=== PATIENT | female | born 1955 ===

== ENCOUNTER 2020-07-24 07:56 | Day surgery (SDC) | payer OTHER, SELFPAY ==
--- NOTE | 2020-07-23 12:26 | HO.ANESPROP2 ---
Documented by User: Sulema Redd 07/23/20 12:31 HPI - Anesthesia Eval Consult details Narrative: 65yo F for colonoscopy: screening [facility] Past Medical History Medical History (Updated 07/23/20 @ 12:30 by Sulema Redd) Diabetes HLD (hyperlipidemia) HTN (hypertension) Surgical History Surgical History Hx of colonoscopy Social History Social History Smoking Status: Former smoker Second Hand Smoke Exposure: No Use of substances other than those prescribed or required for medical reasons: No Have you been hit, kicked, punched, or otherwise hurt by someone within the past year? If so, by whom?: No Advance Directives: No Advance Directives Information Provided: Yes Meds Allergies Allergy/AdvReac Type Severity Reaction Status Date / Time No Known Allergies Allergy Verified 07/23/20 12:32 Home Medications Medication Instructions Recorded Confirmed Type amlodipine 1 tab PO DAILY 07/24/20 07/24/20 History atorvastatin 1 tab PO DAILY 07/24/20 07/24/20 History bisacodyl 2 tab PO BID 07/24/20 07/24/20 History lisinopril 1 tab PO DAILY 07/24/20 07/24/20 History metformin 1 tab PO DAILY 07/24/20 07/24/20 History peg 3350-electrolytes [GaviLyte-G] ml PO DIRECTED 07/24/20 History valacyclovir 1 tab PO TID 07/24/20 07/24/20 History Exam Exam Date and Time: July 23, 2020 1226 Pertinent Lab Results Pertinent Lab Results: Laboratory Tests 06/06/20 09:20 Sodium 141 Potassium 4.2 Chloride 107 BUN 13 Creatinine 0.86 Assessment and Plan Assessment Anesthesia Assessment: Chart Reviewed Documented by User: Antony Potts 07/24/20 09:10 [facility] Past Medical History Medical History (Updated 07/23/20 @ 12:30 by Sulema Redd) Diabetes HLD (hyperlipidemia) HTN (hypertension) Surgical History Surgical History Hx of colonoscopy Social History Social History Smoking Status: Former smoker Second Hand Smoke Exposure: No Use of substances other than those prescribed or required for medical reasons: No Have you been hit, kicked, punched, or otherwise hurt by someone within the past year? If so, by whom?: No Advance Directives: No Advance Directives Information Provided: Yes Meds Allergies Allergy/AdvReac Type Severity Reaction Status Date / Time No Known Allergies Allergy Verified 07/23/20 12:32 Home Medications Medication Instructions Recorded Confirmed Type amlodipine 1 tab PO DAILY 07/24/20 07/24/20 History atorvastatin 1 tab PO DAILY 07/24/20 07/24/20 History bisacodyl 2 tab PO BID 07/24/20 07/24/20 History lisinopril 1 tab PO DAILY 07/24/20 07/24/20 History metformin 1 tab PO DAILY 07/24/20 07/24/20 History peg 3350-electrolytes [GaviLyte-G] ml PO DIRECTED 07/24/20 History valacyclovir 1 tab PO TID 07/24/20 07/24/20 History Exam Airway Mallampati Class: III TM Dist: >3cm Neck ROM: Full Heart: RRR Assessment and Plan Assessment Anesthesia Assessment: Anesthesia Plan Discussed Final Anesthetic Review NPO: Yes ASA Class: II Final Preanesthetic Review: Consent Obtained/Reviewed Anesthetic Plan Anesthetic Plan: MAC: Disposition: Standard PACU
--- NOTE | 2020-07-24 07:25 | MHC.SHP ---
Pre-Procedural Eval Section A The patient is an INPATIENT: No The History & Physical has been completed within 30 days and I have reviewed it.: No Section B Chief Complaint: HX Colon Polyps, Screening Details of Present Illness: Had a colonoscopy 5 yrs ago at [facility] - a few small polyps and advised repeat Colon in 5 yrs. Patient denies abd pain, change in bowel habits, black stools or rectal bleeding Has a normal BM daily. Relevant Family History (Specify if Yes): No Relevant Social History: None Present Medications: see Short Stay Collaborative assessment Medical History: Significant History (Diabetes HLD (hyperlipidemia) HTN (hypertension)) History of Previous Operations: Relevant previous surgery/procedure and date(s) (colonoscopy in 2013) Allergies: Allergies Allergy/AdvReac Type Severity Reaction Status Date / Time No Known Allergies Allergy Verified 07/23/20 12:32 Review of Systems Sugical H&P ROS: Negative: Constitution, Cardiovascular, Respiratory, Psychiatric and Gastrointestinal Exam Surgical H&P Exam: Normal: Heart, Normal: Lungs, Normal: Extremities and Normal: Abdomen Plan Diagnosis/Plan: Unchanged Patient has been examined and remains a candidate for the planned procedure
[2020-07-24 08:08] VITALS: BMI 30.9
[2020-07-24 08:16] VITALS: BP 136/75; PULSE 81; RESP 16; TEMP 37; O2SAT 99
--- NOTE | 2020-07-24 08:16 | P.BOP_ITS ---
Brief Operative Note Date of procedure: 07/24/20 Pre-op diagnosis: Colon cancer screening, hx of colon polyps Post-op diagnosis: other (Colon polyps, diverticulosis and hemorrhoids) Procedure: COLONOSCOPY TILL CECUM WITH SNARE POLYPECTOMY Consent: Indications for the procedure and potential complications of bleeding, perforation, reaction to medications and missed diagnosis were discussed with the patient and informed consent was obtained. Instrument: Olympus PCF H 190 L variable stiffness pediatric colonoscope Monitoring: Vital signs and clinical assessment, intermittent blood pressure monitoring, continuous EKG monitoring, Pulse oximetry and Carbon Dioxide monitoring were done throughout the procedure. Colon withdrawl time was 27 minutes. Procedure: The patient was placed in the left lateral decubitis position and pre-procedure medications were administered. After a digital rectal examination of the ano-rectum, the video colonoscope was inserted into the rectum and advanced through the colon to the cecum. The colonoscope was slowly withdrawn in a retrograde panoramic fashion and the colon mucosa was carefully examined including a retroflexed view of the rectum. Findings and interventions are described below. Procedure Difficulty: Without difficulty Findings: Terminal Ileum: Not evaluated Cecum: Normal Ascending Colon: Normal Transverse Colon: A 12-15 mm sessile polyp removed with a hot snare. Descending Colon: Moderate diverticulosis Sigmoid Colon: A 10 mm sessile polyp removed with a hot snare and a 4-5 mm diminutive polyp removed with the cold biopsy. A few additional 4-5 mm diminutive appearing polyps in rectosigmoid which were not removed. Moderate diverticulosis Rectum: A few additional 4-5 mm diminutive appearing polyps in rectosigmoid which were not removed. Ano-rectum: Moderate internal hemorrhoids Colon preparation: Good after copious irrigation Impression and Post Procedure Diagnosis: Colonoscopy Findings: Three polyps removed Moderate diverticulosis seen in the left colon Moderate hemorrhoids on retroflexed exam. Plan: Await pathology results Patient has an appointment on 08/16/20 in the GI Clinic with LINDSAY Cowart-. Repeat Colonoscopy interval based on path results - in 3 years if polyps are adenomatous and 5 years due to a hx of adenomatous colon polyps. Above findings were reviewed with the patient and colon polyps and diverticulosis handouts were given in the discharge area Surgeon: Swetha Hammer MD Anesthesia: MAC ( Dr Potts) Laboratory Apparatus Glass Blower: Tarny Riggins Estimated blood loss (mL): 0 Pathology: other (A. TC polyp x 1, B. SC polyps x 2) Condition: stable Disposition: PACU
[2020-07-24 08:19] LABS: Glucose, Whole Blood 94 mg/dL (60-115)
[2020-07-24] MEDS: Lactated Ringers 1,000 ML 100 ML IVCONT (08:25)
[2020-07-24 09:21] VITALS: BP 97/52; PULSE 69; RESP 18; TEMP 36.9; O2SAT 97
[2020-07-24 09:43] VITALS: BP 121/66; PULSE 67; RESP 17; TEMP 36.9; O2SAT 100
--- NOTE | 2020-07-24 10:10 | HO.POSTANES ---
Post Anesthesia Evaluation Post Anesthesia Evaluation Vital Signs: Vital Signs Temp Pulse Resp BP Pulse Ox 07/24/20 09:43 98.5 F 67 17 121/66 100 07/24/20 09:21 98.5 F 69 18 97/52 L 97 07/24/20 08:16 98.6 F 81 16 136/75 99 Anesthesia: Monitored Mental Status: Awake Pain Control: Satisfactory Nausea/Vomiting: None Hydration: Adequate Anesthesia-Related Issues: No Anes. Related Issues
== END 2020-07-24 10:40 | disposition home or self-care (01) ==
PROVIDERS: PCP Family Medicine; Visit Provider Internal Medicine Gastroenterology
PROC: 0DJD8ZZ Inspection of Lower Intestinal Tract, Via Natural or Artificial Opening Endoscopic (ICD-10-PCS; CPT 45378; principal; 2020-07-24 08:50)
DX: Z12.11 Encounter for screening for malignant neoplasm of colon (principal); Z86.010 Personal history of colon polyps; D12.3 Benign neoplasm of transverse colon; K63.5 Polyp of colon; K57.30 Diverticulosis of large intestine without perforation or abscess without bleeding; K64.8 Other hemorrhoids; E11.9 Type 2 diabetes mellitus without complications; E78.5 Hyperlipidemia, unspecified; I10 Essential (primary) hypertension; Z79.84 Long term (current) use of oral hypoglycemic drugs; Z79.899 Other long term (current) drug therapy; Z87.891 Personal history of nicotine dependence
CPT/HCPCS: 45385; 45380; 82947; 88305

== ENCOUNTER 2020-10-29 14:16 | Outpatient (REF) | payer OTHER, SELFPAY ==
[2020-10-29 14:56] LABS: Creatinine Urine 74.27 mg/dL; Microalbum/Creatinine Ratio Ur 22.8 ug/mg cr
== END 2020-10-29 14:17 | disposition home or self-care (01) ==
LOC: HO.LNP 14:16
PROVIDERS: Visit Provider Family Medicine
DX: Z00.00 Encounter for general adult medical examination without abnormal findings (principal); I10 Essential (primary) hypertension; R74.01 Elevation of levels of liver transaminase levels; E78.5 Hyperlipidemia, unspecified
CPT/HCPCS: 82043

== ENCOUNTER 2021-03-21 10:20 | Outpatient (REF) | payer MEDICARE, SELFPAY ==
[2021-03-21 15:07] LABS: Alanine Aminotransferase 37 U/L (0-31); Albumin Level 4.4 g/dL (3.5-5.0); Alkaline Phosphatase 51 U/L (39-117); Anion Gap 14 (12-20); Aspartate Amino Transferase 24 U/L (5-31); Bilirubin Total 0.5 mg/dL (0.0-1.0); Blood Urea Nitrogen 19 mg/dL (9-16); Calcium 9.4 mg/dL (8.4-10.2); Carbon Dioxide 27 mmol/L (22-29); Chloride 107 mmol/L (96-108); Estimated Glomerular Filt Rate 60; Glucose Fasting 109 mg/dL (60-99); Potassium 4.8 mmol/L (3.3-5.1); Sodium 143 mmol/L (135-145); Total Protein 6.9 g/dL (6.5-8.0)
[2021-03-21 15:27] LABS: TSH reflex Free T4 0.97 uIU/mL (0.32-4.0)
== END 2021-03-21 10:21 | disposition home or self-care (01) ==
LOC: HO.WFDLDS 10:20
PROVIDERS: Visit Provider Family Medicine
DX: Z00.00 Encounter for general adult medical examination without abnormal findings (principal); E11.9 Type 2 diabetes mellitus without complications; I10 Essential (primary) hypertension
CPT/HCPCS: 36415; 80053; 84443

== ENCOUNTER 2021-07-09 08:00 | Outpatient (RCR) | payer MEDICARE, SELFPAY | END 2021-10-21 09:54 | disposition home or self-care (01) | LOC: HO.PTWFD 08:00 | PROVIDERS: PCP Family Medicine; Visit Provider Family Medicine | DX: M25.511 Pain in right shoulder (principal) | CPT/HCPCS: 97110; 97140; 97150; 97161; 97530; 97535 ==

== ENCOUNTER 2021-09-13 10:16 | Outpatient (REF) | payer MEDICARE, SELFPAY ==
[2021-09-13 14:36] LABS: Creatinine Urine 264.74 mg/dL; Microalbum/Creatinine Ratio Ur 47.2 ug/mg cr
[2021-09-13 14:39] LABS: Alanine Aminotransferase 46 U/L (0-31); Albumin Level 4.2 g/dL (3.5-5.0); Alkaline Phosphatase 48 U/L (39-117); Anion Gap 12 (12-20); Aspartate Amino Transferase 34 U/L (5-31); Bilirubin Total 0.2 mg/dL (0.0-1.0); Blood Urea Nitrogen 18 mg/dL (9-16); Calcium 9.1 mg/dL (8.4-10.2); Carbon Dioxide 26 mmol/L (22-29); Chloride 106 mmol/L (96-108); Cholesterol 144 mg/dL; Estimated Glomerular Filt Rate 50; Glucose Fasting 112 mg/dL (60-99); HDL Cholesterol 34 mg/dL; LDL Cholesterol Calculated 73 mg/dl; Potassium 4.2 mmol/L (3.3-5.1); Sodium 140 mmol/L (135-145); Total Protein 6.7 g/dL (6.5-8.0); Triglycerides 189 mg/dL
[2021-09-17 13:21] LABS: Vitamin D 25-OH, D2 <4 ng/mL; Vitamin D 25-OH, D3 31 ng/mL; Vitamin D 25-OH, Total 31 ng/mL (30-100)
== END 2021-09-13 10:17 | disposition home or self-care (01) ==
LOC: HO.WFDLDS 10:16
PROVIDERS: Absent Provider Hospitalist; Visit Provider Family Medicine
DX: Z00.00 Encounter for general adult medical examination without abnormal findings (principal); R74.01 Elevation of levels of liver transaminase levels; E11.9 Type 2 diabetes mellitus without complications; E78.5 Hyperlipidemia, unspecified; I10 Essential (primary) hypertension; E55.9 Vitamin D deficiency, unspecified
CPT/HCPCS: 36415; 80053; 80061; 82043; 82306

== ENCOUNTER 2021-09-18 10:57 | Emergency (ER) | payer MEDICARE, SELFPAY ==
--- NOTE | ~2021-09-18 | XR_ITS ---
EXAMINATION: XR CHEST CLINICAL INFORMATION: Cough and Covid positive COMPARISON: None TECHNIQUE: Frontal view of the chest was obtained. FINDINGS: The lungs are well-expanded and clear of acute process. The heart size and pulmonary vascularity is normal. No gross bony abnormality. There is mild spondylosis of dorsal spine. XR/XR chest 1V IMPRESSION: Unremarkable chest exam.
--- NOTE | ~2021-09-18 | CT_ITS ---
EXAMINATION: CT ANGIOGRAM OF THE CHEST WITH AND WITHOUT CONTRAST (CT PULMONARY ANGIOGRAM FOR PE) CLINICAL INFORMATION: Reason for Exam hypoxia, tachycardia, SOB COMPARISON: None TECHNIQUE: Prior to contrast administration, noncontrast localization images were obtained. Subsequently, multidetector volumetric imaging was performed from the thoracic inlet to below the diaphragms following the administration of 71 mL Omnipaque 350 intravenous contrast. No contrast reaction reported Sagittal, coronal, and MIP oblique sagittal reformatted images were obtained on the CT workstation, uploaded to PACS, and reviewed. This CT examination was performed using dose optimization techniques as appropriate, variously including the following: *Automated exposure control *Adjustment of mA and/or kV according to patient size (this includes techniques or standardized protocols for targeted exams where dose is matched to indication/reason for exam; i.e. extremities or head) *Use of iterative reconstruction technique Total exam dose-length product 272 mGy-cm FINDINGS: QUALITY OF STUDY/CONTRAST BOLUS: Satisfactory. PULMONARY ARTERIES: No central or segmental pulmonary emboli. THORACIC AORTA: No aneurysm or dissection. LUNG: Central airways are patent. There is bronchial wall thickening present. No bronchiectasis. There is bilateral hilar lymphadenopathy present. There are diffuse bilateral regions of groundglass density some along the bronchovascular bundles but also in a peripheral pattern throughout the lungs consistent with a viral/atypical pneumonitis such as Covid. PLEURA: No pleural effusion or pneumothorax. MEDIASTINUM: Normal heart size. No pericardial effusion. There is contrast streak artifact present making evaluation of mediastinal lymphadenopathy heart. There is bilateral hilar lymphadenopathy. No evidence of septal bowing or right heart strain. CHEST WALL/AXILLA: No axillary or internal mammary lymphadenopathy. OSSEOUS STRUCTURES: No acute or suspicious osseous abnormality. UPPER ABDOMEN: Small hiatal hernia present. Cholelithiasis is seen without evidence of acute cholecystitis. No reflux of contrast into the hepatic veins to suggest elevated right heart pressures. CT/CT angio chest PE protocol IMPRESSION: No evidence of acute pulmonary artery embolus or thoracic aortic aneurysm or dissection. Diffuse groundglass opacity bilaterally consistent with Covid. Bilateral hilar lymphadenopathy. Cholelithiasis without evidence of acute cholecystitis. VTE: negative
[2021-09-18 11:24] VITALS: BP 115/77; PULSE 92; RESP 18; TEMP 36.9; O2SAT 94; BMI 30.4
[2021-09-18 12:00] LABS: MANUAL DIFF FLAG NO
[2021-09-18 12:01] LABS: Hematocrit 36.3 % (37.0-47.0); Hemoglobin 12.1 g/dl (12.0-16.0); Imm Gran Abs Auto 0.02 X10*3/uL (0.00-0.03); Imm Gran Pct Auto 0.3 % (0.0-0.4); Lymphocytes Absolute Auto 0.9 X10*3/uL (1.2-4.9); Lymphocytes Percent Auto 14.4 % (20-40); Mean Corpuscular HGB Conc 33.3 g/dl (31.0-35.0); Mean Corpuscular Hemoglobin 28.2 pg (27.0-33.0); Mean Corpuscular Volume 84.6 fL (80.0-98.0); Mean Platelet Volume 11.3 fL (9.4-12.3); Monocytes Absolute Auto 0.5 X10*3/uL (0.1-1.2); Monocytes Percent Auto 8.5 % (2-11); Neutrophils Absolute Auto 4.9 x10*3/uL (2.0-8.3); Neutrophils Percent Auto 76.8 % (45-73); Platelet Count 150 X10*3/uL (160-400); Red Blood Count 4.29 X10*6/uL (4.20-5.50); Red Cell Distribution Width 14.7 % (11.0-16.0); White Blood Count 6.4 X10*3/uL (4.8-10.8)
[2021-09-18 12:28] LABS: Anion Gap 13 (12-20); Blood Urea Nitrogen 18 mg/dL (9-16); Calcium 8.6 mg/dL (8.4-10.2); Carbon Dioxide 25 mmol/L (22-29); Chloride 102 mmol/L (96-108); Creatinine Clr Calc Pharmacy 56.9; Estimated Glomerular Filt Rate 55; Glucose Random 130 mg/dL (60-115); Potassium 4.1 mmol/L (3.3-5.1); Sodium 136 mmol/L (135-145)
--- NOTE | 2021-09-18 13:55 | ED_ITS ---
HPI - URI/Sore Throat General Chief Complaint: Upper Respiratory Symptoms Stated Complaint: dehydration covid + Time Seen by Provider: 09/18/21 13:55 Source: patient Mode of arrival: ambulatory Limitations: no limitations History of Present Illness HPI Narrative: 66-year-old female past medical history significant for hyperlipidemia, hypertension, diabetes, elevated transaminases, vitamin-D deficiency presenting to the emergency department with concerns of malaise, fatigue, body aches, left ear pain and productive cough of clear sputum x1 week. Patient tells me that today she tested positive for COVID-19. She tells me that she feels dehydrated has not been eating and drinking well. She tells me that she has been eating eggs, and drinking lots of water but she still feels dehydrated. She denies chest pain, shortness of breath fevers, chills, nausea, vomiting, abdominal pain, vision changes, headache. Patient is not vaccinated MD elicited complaint: other (Fatigue, COVID +,Headache ) Onset (ago): week(s) (1) Consistency: constant Severity: severe Description of mucous: clear Able to tolerate fluids by mouth: Yes Exacerbating factors: nothing Relieving factors: nothing Context: sick contacts ( same sx ) Associated symptoms: headache and other (dehydrated, body aches ) Treatments prior to arrival: none Related Data Home Medications Medication Instructions Recorded Confirmed magnesium 200 mg tablet 400 mg PO DAILY tab 05/13/21 05/13/21 Previous Rx's Medication Instructions Recorded amlodipine 10 mg tablet 10 mg PO DAILY 90 Days #90 tab 04/19/21 lisinopril 40 mg tablet 40 mg PO DAILY 90 Days #90 tab 04/19/21 metformin 500 mg tablet 500 mg PO DAILY 90 Days #90 tab 04/19/21 atorvastatin 40 mg tablet 40 mg PO DAILY #90 tab 04/22/21 azithromycin 250 mg tablet See Rx Instructions .ROUTE 09/18/21 .COMPLEX #6 tab Allergies Allergy/AdvReac Type Severity Reaction Status Date / Time No Known Allergies Allergy Verified 05/13/21 15:39 Review of Systems Review of Systems: Constitutional : No Weight loss, No Fever, No Chills, + Fatigue, + Malaise ENT/Mouth : No sore throat, No Rhinorrhea, + ear ache Eyes: No Eye Pain, No Swelling, No Redness Cardiovascular : No Chest Pain, No SOB, No Dyspnea on Exertion, No Orthopnea, No Edema, No Palpitations Respiratory : + Cough, + Sputum, No Wheezing Gastrointestinal : No Nausea, No Vomiting, No Diarrhea, No Constipation, No abdominal Pain, No Hematochezia, No Melena Genitourinary : No Dysuria, No Urinary Frequency, No Hematuria, Musculoskeletal : No joint pain, No Myalgias, No Joint Swelling Skin : No Skin Lesions, No rash Neuro : No Weakness, No Numbness, No Dizziness, + Headache Psych : No Anxiety/Panic, No Depression All other systems reviewed and are negative Yes all other systems are reviewed and are negative [facility] Past Medical History Attestation statement: The following information was validated with the patient. Source: old records reviewed and nursing notes reviewed Medical History Colon polyps Diabetes Diverticulosis HLD (hyperlipidemia) HTN (hypertension) Surgical History Hx of colonoscopy Family History Family History Father HTN (hypertension) CVD (cardiovascular disease) Mother No problems noted. Sister No problems noted. Sister No problems noted. Son No problems noted. Son No problems noted. Son No problems noted. Son No problems noted. Daughter No problems noted. Daughter No problems noted. 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 Oriented X3.? No acute distress.? Head: Normocephalic, atraumatic, no step-offs or deformities Eyes: Pupils equal, round and reactive to light.? ENT: Pharynx normal.? Neck: Normal inspection.? Neck supple.? CVS: Normal heart rate and rhythm.? Pulses normal.? Respiratory: No respiratory distress.? + crackles to bilateral lower lobes Abdomen: Soft and nontender.? Skin: Skin warm and dry.? Normal skin color.? Normal skin turgor.? Extremities: No lower extremity edema.? No calf ttp. 5/5 strength to bilateral upper and lower extremities Back: No midline tenderness, no C-spine tenderness, full range of motion, no CVA tenderness bilaterally Neuro: Oriented X 3.? No motor deficit.? No sensory deficit. Course Reevaluation(s) Reevaluation #1: And after ambulation patient is saturating 95% on room air. Patient not complaining of shortness of breath. No leukocytosis or anemia noted, leukopenia is noted no previous labs to compare with. BUN is noted to be slightly elevated, likely secondary to dehydration. There is no need to do a COVID swab since patient just got COVID tested today and she was positive. Patient's symptoms likely secondary to COVID-19. Chest x-ray pending Time: 14:01 Reevaluation #2: Chest x-ray still pending. Patient is hypoxic saturating 91% on room air, patient does not use home O2, she is not a smoker. Since patient at 1 point was tachycardic, and now is hypoxic I will do a CTA of the chest to rule out pulmonary embolism. Time: 15:27 Reevaluation #3: No VTE. Ground-glass opacities consistent with COVID. Bilateral hilar lymphadenopathy. There is no evidence of acute pulmonary artery embolus or thoracic aortic aneurysm or dissection. There is cholelithiasis without evidence of acute cholecystitis Time: 17:05 Additional Reevaluation(s): 1710 Ambulatory O2 - 94%-92% At this time patient is safe for discharge home with PCP follow-up. I have advised her to return to the emergency department with new or worsening symptoms. I will discharge patient home on azithromycin, to cover for atypical viral pneumonia. Discussed this case with , and he agrees with my plan patient OK for DC home, he suggest giving patient albuterol inhaler. Which I added. Comfortable with DC home. MDM - URI/Sore Throat MDM Narrative Medical decision making narrative: 1359 66 yo F pmhx htn, dm, hld, and elevated transaminases presents to ED with body aches, fatigue, malise, feel dehydrated and productive cough X 1 week. To note, patient tested + for COVID-19 today. She is not vaccinated Physical examination significant for bilateral cracklesto lower lung davila. Vital signs stable. regular rate and rhythm. Abdomen soft nontender nondistended. Bilateral tympanic membranes pearly white, nor erythema or edema no bulging. No lymphadenopathy Plan at this time is to obtain basic labs. chest x-ray Medical Records Attestation: I reviewed the patient's medical records. Lab Data Attestation: I reviewed the patient's lab results. Result diagrams: 09/18/21 11:54 12 11:54 Labs: Lab Results 09/18/21 09/18/21 Range/Units 11:54 11:54 WBC 6.4 (4.8-10.8) X10*3/uL RBC 4.29 (4.20-5.50) X10*6/uL Hgb 12.1 (12.0-16.0) g/dl Hct 36.3 L (37.0-47.0) % MCV 84.6 (80.0-98.0) fL MCH 28.2 (27.0-33.0) pg MCHC 33.3 (31.0-35.0) g/dl RDW 14.7 (11.0-16.0) % Plt Count 150 L (160-400) X10*3/uL MPV 11.3 (9.4-12.3) fL Immature Gran % (Auto) 0.3 (0.0-0.4) % Neut % (Auto) 76.8 H (45-73) % Lymph % (Auto) 14.4 L (20-40) % Hunt % (Auto) 8.5 (2-11) % Eos % (Auto) 0.0 (0-4) % Baso % (Auto) 0.0 (0-2) % Lymph # (Auto) 0.9 L (1.2-4.9) X10*3/uL Hunt # (Auto) 0.5 (0.1-1.2) X10*3/uL Eos # (Auto) 0.0 (0.0-0.4) X10*3/uL Baso # (Auto) 0.0 (0.0-0.2) X10*3/uL Abs Immat Gran (auto) 0.02 (0.00-0.03) X10*3/uL Absolute Neuts (auto) 4.9 (2.0-8.3) x10*3/uL Absolute Nucleated RBC 0.000 (0.0-0.012) X10*3/uL Nucleated RBC % (auto) 0.0 (0.0-0.2) /100WBC Sodium 136 (135-145) mmol/L Potassium 4.1 (3.3-5.1) mmol/L Chloride 102 (96-108) mmol/L Carbon Dioxide 25 (22-29) mmol/L Anion Gap 13 (12-20) BUN 18 H (9-16) mg/dL Creatinine 1.01 (0.5-1.4) mg/dL Estim Creat Clear Calc 56.9 Estimated GFR 55 Random Glucose 130 H (60-115) mg/dL Calcium 8.6 (8.4-10.2) mg/dL Imaging Data Chest x-ray: Attestation: I personally reviewed and interpreted this imaging study as follows: Radiologist's impression: FINDINGS: The lungs are well-expanded and clear of acute process. The heart size and pulmonary vascularity is normal. No gross bony abnormality. There is mild spondylosis of dorsal spine. XR/XR chest 1V IMPRESSION: Unremarkable chest exam. CTA: Attestation: I personally reviewed and interpreted this imaging study as follows: Radiologist's impression: CT/CT angio chest PE protocol IMPRESSION: No evidence of acute pulmonary artery embolus or thoracic aortic aneurysm or dissection. ? Diffuse groundglass opacity bilaterally consistent with Covid. ? Bilateral hilar lymphadenopathy. ? Cholelithiasis without evidence of acute cholecystitis. ? VTE: negative Critical Care Time Critical Care Time Critical Care Time: No Discharge Plan Discharge Clinical Impression: Malaise, Fatigue, COVID-19, Pneumonia due to 2019-nCoV Patient Disposition: Home, Self-Care Instructions: Fatigue (ED), COVID-19 (Coronavirus Disease 2019) (ED) Additional Instructions: Take your medications as prescribed. If you were prescribed antibiotics today, it is important that you take your medication to their entirety, do not skip any doses, do not finish them early. No blood clot in the lungs Today you tested positive for COVID-19. Take Ibuprofen or Tylenol as needed for fevers or body aches. Quarantine for 14 days if you are not vaccinated or for 10 days if you are vaccinated. Drink plenty of fluids. Ibuprofen every 6 hours tylenol every four if able to take these meds for pain/fever. Use inhaler as prescribed. Follow-up with your primary care provider this week. Return to the emergency department with new or worsening symptoms. In case of emergency call 911 Prescriptions: New azithromycin 250 mg tablet See Rx Instructions .ROUTE .COMPLEX Qty: 6 RF: 0 No Action lisinopril 40 mg tablet 40 mg PO DAILY 90 Days Qty: 90 RF: 3 amlodipine 10 mg tablet 10 mg PO DAILY 90 Days Qty: 90 RF: 3 metformin 500 mg tablet 500 mg PO DAILY 90 Days Qty: 90 RF: 3 atorvastatin 40 mg tablet 40 mg PO DAILY Qty: 90 RF: 3 magnesium 200 mg tablet 400 mg PO DAILY RF: 0 Referrals: Kanu Hinkle MD [Primary Care Provider] - 2 days Stand Alone Forms: Work/School Release
[2021-09-18] MEDS: Acetaminophen 325 MG TABLET 650 MG PO (14:14)
[2021-09-18 15:20] VITALS: BP 106/58; PULSE 77; RESP 20; TEMP 36.9; O2SAT 91
[2021-09-18] MEDS: iohexoL 350 MG/ML 100 ML INFUS..BTL IV (16:23)
[2021-09-18] MEDS: Albuterol Sulfate 90 MCG 8 GM INHALER 4 PUFF INHALE (17:26)
[2021-09-18 17:29] VITALS: PULSE 77; RESP 20; O2SAT 92
== END 2021-09-18 18:09 | disposition home or self-care (01) ==
PROVIDERS: Emergency Provider Emergency Medicine; PCP Family Medicine
DX: U07.1 COVID-19 (principal); J12.82 Pneumonia due to coronavirus disease 2019; R09.02 Hypoxemia
CPT/HCPCS: 36415; 71045; 71275; 80048; 85025; 94640; 99284; Q9967

== ENCOUNTER 2022-01-27 08:26 | Outpatient (REF) | payer MEDICARE, SELFPAY ==
[2022-01-27 12:37] LABS: Alanine Aminotransferase 25 U/L (0-31); Albumin Level 4.2 g/dL (3.5-5.0); Alkaline Phosphatase 52 U/L (39-117); Anion Gap 9 (12-20); Aspartate Amino Transferase 19 U/L (5-31); Bilirubin Total 0.4 mg/dL (0.0-1.0); Blood Urea Nitrogen 17 mg/dL (9-16); Calcium 9.1 mg/dL (8.4-10.2); Carbon Dioxide 28 mmol/L (22-29); Chloride 108 mmol/L (96-108); Cholesterol 184 mg/dL; Estimated Glomerular Filt Rate > 60; Glucose Fasting 127 mg/dL (60-99); HDL Cholesterol 48 mg/dL; LDL Cholesterol Calculated 103 mg/dl; Potassium 4.1 mmol/L (3.3-5.1); Sodium 141 mmol/L (135-145); Total Protein 6.5 g/dL (6.5-8.0); Triglycerides 165 mg/dL
[2022-01-27 12:55] LABS: Vitamin D 25-OH Total 34.7 ng/mL (>30)
== END 2022-01-27 08:27 | disposition home or self-care (01) ==
LOC: HO.WFDLDS 08:26
PROVIDERS: Visit Provider Family Medicine
DX: Z00.00 Encounter for general adult medical examination without abnormal findings (principal); E55.9 Vitamin D deficiency, unspecified; E11.9 Type 2 diabetes mellitus without complications
CPT/HCPCS: 36415; 80053; 80061; 82306

== ENCOUNTER 2022-06-03 10:06 | Outpatient (REF) | payer MEDICARE, SELFPAY ==
[2022-06-03 14:51] LABS: Alanine Aminotransferase 16 U/L (0-31); Albumin Level 4.1 g/dL (3.5-5.0); Alkaline Phosphatase 49 U/L (39-117); Anion Gap 14 (12-20); Aspartate Amino Transferase 16 U/L (5-31); Bilirubin Total 0.4 mg/dL (0.0-1.0); Blood Urea Nitrogen 18 mg/dL (9-16); Calcium 9.4 mg/dL (8.4-10.2); Carbon Dioxide 25 mmol/L (22-29); Chloride 107 mmol/L (96-108); Cholesterol 160 mg/dL; Estimated Glomerular Filt Rate 57; Glucose Fasting 105 mg/dL (60-99); HDL Cholesterol 45 mg/dL; LDL Cholesterol Calculated 90 mg/dl; Potassium 4.6 mmol/L (3.3-5.1); Sodium 141 mmol/L (135-145); Total Protein 6.8 g/dL (6.5-8.0); Triglycerides 127 mg/dL; Vitamin D 25-OH Total 41.3 ng/mL (>30)
[2022-06-03 15:00] LABS: Creatinine Urine 216.92 mg/dL
[2022-06-03 15:13] LABS: Microalbum/Creatinine Ratio Ur 788.7 ug/mg cr
== END 2022-06-03 10:07 | disposition home or self-care (01) ==
LOC: HO.WFDLDS 10:06
PROVIDERS: Visit Provider Family Medicine
DX: Z00.00 Encounter for general adult medical examination without abnormal findings (principal); I10 Essential (primary) hypertension; E78.5 Hyperlipidemia, unspecified; E55.9 Vitamin D deficiency, unspecified
CPT/HCPCS: 36415; 80053; 80061; 82043; 82306

== ENCOUNTER 2022-10-21 10:20 | Outpatient (REF) | payer MEDICARE, SELFPAY ==
[2022-10-21 14:01] LABS: MANUAL DIFF FLAG NO
[2022-10-21 14:12] LABS: Basophils Percent Auto 0.5 % (0-2); Eosinophils Absolute Auto 0.1 X10*3/uL (0.0-0.4); Eosinophils Percent Auto 1.3 % (0-4); Hematocrit 39.9 % (37.0-47.0); Hemoglobin 12.6 g/dl (12.0-16.0); Imm Gran Abs Auto 0.02 X10*3/uL (0.00-0.03); Imm Gran Pct Auto 0.3 % (0.0-0.4); Lymphocytes Absolute Auto 1.6 X10*3/uL (1.2-4.9); Lymphocytes Percent Auto 20.7 % (20-40); Mean Corpuscular HGB Conc 31.6 g/dl (31.0-35.0); Mean Corpuscular Volume 85.4 fL (80.0-98.0); Mean Platelet Volume 10.8 fL (9.4-12.3); Monocytes Absolute Auto 0.4 X10*3/uL (0.1-1.2); Monocytes Percent Auto 5.7 % (2-11); Neutrophils Absolute Auto 5.4 x10*3/uL (2.0-8.3); Neutrophils Percent Auto 71.5 % (45-73); Platelet Count 277 X10*3/uL (160-400); Red Blood Count 4.67 X10*6/uL (4.20-5.50); Red Cell Distribution Width 14.6 % (11.0-16.0); White Blood Count 7.6 X10*3/uL (4.8-10.8)
[2022-10-21 14:14] LABS: Appearance Urine Cloudy; Color Urine Yellow; Glucose Urine UA Negative (Negative); Leukocyte Esterase Urine Small (1+) (Negative); Nitrite Urine Negative (Negative); UMIC TRIGGER UA YES; Urine Blood Large (3+) (Negative); Urine Ketones Negative (Negative); Urine Protein 30 (1+) mg/dL (Neg-Trace)
[2022-10-21 14:34] LABS: Bacteria Urine None Seen (None Seen); Calcium Oxalate Crystals Urine Present; Hyaline Casts Urine 0-2 /LPF (0-2); RBC Urine >20 /HPF (0-2); Squamous Epithelial Cell Urine 0-2 /HPF (0-2)
[2022-10-21 14:50] LABS: Alanine Aminotransferase 21 U/L (0-31); Albumin Level 4.3 g/dL (3.5-5.0); Alkaline Phosphatase 65 U/L (39-117); Anion Gap 14 (12-20); Aspartate Amino Transferase 18 U/L (5-31); Bilirubin Total 0.4 mg/dL (0.0-1.0); Blood Urea Nitrogen 15 mg/dL (9-16); Calcium 9.5 mg/dL (8.4-10.2); Carbon Dioxide 26 mmol/L (22-29); Chloride 108 mmol/L (96-108); Cholesterol 179 mg/dL; Estimated Glomerular Filt Rate 59; Glucose Fasting 111 mg/dL (60-99); HDL Cholesterol 47 mg/dL; LDL Cholesterol Calculated 103 mg/dl; Potassium 4.6 mmol/L (3.3-5.1); Sodium 143 mmol/L (135-145); TSH reflex Free T4 0.85 uIU/mL (0.32-4.0); Total Protein 6.8 g/dL (6.5-8.0); Triglycerides 147 mg/dL
[2022-10-21 15:32] LABS: Creatinine Urine 180.88 mg/dL; Microalbum/Creatinine Ratio Ur 74.6 ug/mg cr
== END 2022-10-21 10:21 | disposition home or self-care (01) ==
LOC: HO.WFDLDS 10:20
PROVIDERS: Visit Provider Family Medicine
DX: Z00.00 Encounter for general adult medical examination without abnormal findings (principal); I10 Essential (primary) hypertension; Z13.220 Encounter for screening for lipoid disorders; Z13.29 Encounter for screening for other suspected endocrine disorder
CPT/HCPCS: 36415; 80053; 80061; 81001; 81003; 82043; 84443; 85025

== ENCOUNTER 2023-05-07 08:40 | Outpatient (AMB) | payer MEDICARE, SELFPAY ==
[2023-05-07 08:51] VITALS: BP 118/70; PULSE 75; O2SAT 98; BMI 29.0
--- NOTE | 2023-05-07 08:51 | A.OFFPC_ITS ---
Vital Signs 05/07/23 08:51 Height 5 ft 4 in Weight 169 lb BMI 29.0 BP 118/70 Blood Pressure Location Lt brachial Position Sitting Pulse 75 Pulse Source Pulse Oximeter Pulse Oximetry (%) 98 Oxygen Delivery Method Room Air Intake Visit Reasons: f/u hypertension and diabetes Intake Note: Patient is here for follow up on hypertension and diabetes. Allergies No Known Allergies Allergy (Verified 05/07/23 08:55) Medication List - Last Reconciled 05/07/23 by Kanu Hinkle MD amlodipine 10 mg PO DAILY 90 days atorvastatin 40 mg PO DAILY 90 days blood sugar diagnostic (OneTouch Verio test strips) As directed blood sugar diagnostic (FreeStyle Lite Strips) DX: E11.9, test blood sugar once a day, 90 days blood-glucose meter (WatchupTouch Verio Flex Meter) To test blood sugar daily As directed, 999 days chlorthalidone 25 mg PO DAILY lancets (WatchupTouch UltraSoft Lancets) Test blood sugars daily As directed, 90 days lisinopril 40 mg PO DAILY 90 days magnesium 400 mg PO DAILY metformin 500 mg PO DAILY 90 days Tobacco use date assessed: 05/07/23 Dental Screening Dental Screen Date: 05/07/23 Did you have a dental visit in the last 12 months?: Yes Did you have a dental problem in the last 6 months where you did not have access to dental care?: No Was dental information given to patient?: No HPI f/u hypertension and diabetes HPI Details 68 y/o female presents to f/u diabetes and hypertension. Last A1c in October was 6.2%. A1c today 05/07/23 is 6.1%. She is on metformin 500mg daily. She is followed by Urology for urinary stones for better calcium excretions. Blood pressure today is 118/70. She is on lisinopril 40mg, amlodipine 10mg, and chlorthalidone 25mg daily. [facility] Medical History Colon polyps Diabetes Diverticulosis HLD (hyperlipidemia) HTN (hypertension) Kidney stones Surgical History Hx of colonoscopy Family History Father HTN (hypertension) CVD (cardiovascular disease) Mother No problems noted. Sister No problems noted. Sister No problems noted. Son No problems noted. Son No problems noted. Son No problems noted. Son No problems noted. Daughter No problems noted. Daughter No problems noted. 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 Prieto Chan, Monie Farooq, Noe Bermudez and colleagues, with an educational quyen from [employer]. Review of Systems Const Denies chills, Denies fatigue, Denies fever(s), Denies headache(s) and Denies weakness ENT Denies dizziness and Denies headache(s) Card Denies chest pain, Denies lightheadedness, Denies dyspnea and Denies other (Palpitations) Resp Denies cough, Denies dyspnea, Denies wheezing and Denies other ( shortness of breath) Musc Denies numbness and Denies tingling Neuro Denies dizziness, Denies headache(s), Denies numbness, Denies tingling, Denies paresthesias and Denies weakness Psych Denies anxiety and Denies depression Endo Denies fatigue Aller/Immun Denies wheezing Physical exam (Primary Care) Vital Signs: Last Vital Signs Pulse 75 05/07/23 08:51 BP 118/70 05/07/23 08:51 Pulse Ox 98 05/07/23 08:51 Oxygen Delivery Method Room Air 05/07/23 08:51 BMI result Body Mass Index 29.0 Tobacco/Smoking Status: Tobacco use Status Tobacco use date assessed 05/07/23 05/07/23 09:07 Patient Tobacco Use Status Never used Tobacco 05/07/23 09:07 e-Cigarette/Vaping Use Never Used 05/07/23 09:07 Const General: no acute distress and well developed Nutritional Appearance: well nourished Orientation/consciousness: patient oriented x3 HENMT Head: Yes normocephalic and Yes atraumatic Eyes General: appearance normal, both eyes and all related structures Pupils: Equal, round and reactive pupils present EOM: EOMs intact bilaterally Resp Effort & Inspection: normal respiratory effort Auscultation: clear to auscultation bilaterally Cardio Rate: regular rate Rhythm: regular rhythm Heart sounds: S1 normal heart sound present, S2 normal heart sound present, no gallops, no murmurs and no rubs Neuro General: patient oriented x3 and gait normal Cranial nerves: Yes Equal, round and reactive pupils present Psych Affect: normal affect Results AMB Hemoglobin A1c AMB Hemoglobin A1c 6.1 % Last Edit by Shana Dawkins CMA on 05/07/23 09:12 Assessment and Plan Assessment & Plan (1) Essential hypertension: Code(s): I10 - Essential (primary) hypertension Plan: Blood pressure now well controlled and at goal of less than 140/90 since the addition of chlorthalidone by her urologist for better calcium excretion. Continue lisinopril, amlodipine and chlorthalidone (2) Diabetes type 2, controlled: Code(s): E11.9 - Type 2 diabetes mellitus without complications Plan: A1c today 6.1%, on metformin 500 mg daily Continue current medication regimen Recent eye exam in February showed no diabetic retinopathy (3) Urinary stone: Code(s): N20.9 - Urinary calculus, unspecified Plan: History of urinary stones with sepsis Recently saw urology and has a lower pole stone which appears to be nonobstructing and has undergone lithotripsy Now started on chlorthalidone to help with calcium excretion A well Follow-up with urology as recommended (4) Hyperlipidemia: Code(s): E78.5 - Hyperlipidemia, unspecified Plan: Cholesterol levels were well controlled at her last visit. LDL goal is less than 100 for patient with diabetes and she was at 01:03 in October but she has been working on weight loss and dietary changes. She notes that she has been having sore, aching muscles from atorvastatin 40 mg daily. Will trial 20 mg daily again. If next LDL cholesterol is too high, will try 20 mg/40 mg on alternating days Orders: Orders AMB Hemoglobin A1c Today Z13.9 - Encounter for screening, unspecified Comprehensive [place]. Panel Fast Today E78.5 - Hyperlipidemia, unspecified, Z00.00 - Encounter for general adult medical examination without abnormal findings Lipid Panel Today E78.5 - Hyperlipidemia, unspecified, Z00.00 - Encounter for general adult medical examination without abnormal findings Microalbumin, Random (w Creat) Today I10 - Essential (primary) hypertension Coding Level of Care Code Est Pt Level 4 (07772) Diagnoses Essential hypertension I10 Diabetes type 2, controlled E11.9 Urinary stone N20.9 Hyperlipidemia E78.5
== END 2023-05-07 09:23 | disposition home or self-care (01) ==
PROVIDERS: PCP Family Medicine; Visit Provider Family Medicine
DX: I10 Essential (primary) hypertension (principal); E11.9 Type 2 diabetes mellitus without complications; N20.9 Urinary calculus, unspecified; E78.5 Hyperlipidemia, unspecified; Z13.9 Encounter for screening, unspecified
CPT/HCPCS: 83036; 99214

== ENCOUNTER 2023-07-17 07:51 | Outpatient (REF) | payer MEDICARE, SELFPAY ==
[2023-07-17 11:49] LABS: Appearance Urine Clear; Color Urine Yellow; Glucose Urine UA Negative (Negative); Leukocyte Esterase Urine Trace (Negative); Nitrite Urine Negative (Negative); Specific Gravity - Urine 1.015 (1.005-1.025); UMIC TRIGGER UA YES; Urine Blood Negative (Negative); Urine Ketones Negative (Negative); Urine Protein Negative (Neg-Trace)
[2023-07-17 12:03] LABS: Bacteria Urine None Seen (None Seen); Hyaline Casts Urine 0-2 /LPF (0-2); Squamous Epithelial Cell Urine 0-2 /HPF (0-2); WBC Urine 0-5 /HPF (0-5)
[2023-07-17 12:49] LABS: Alanine Aminotransferase 28 U/L (0-31); Albumin Level 4.4 g/dL (3.5-5.0); Alkaline Phosphatase 42 U/L (39-117); Anion Gap 12 (12-20); Aspartate Amino Transferase 22 U/L (5-31); Bilirubin Total 0.4 mg/dL (0.0-1.0); Blood Urea Nitrogen 16 mg/dL (9-16); Calcium 9.8 mg/dL (8.4-10.2); Carbon Dioxide 27 mmol/L (22-29); Chloride 106 mmol/L (96-108); Cholesterol 169 mg/dL (<200); Estimated Glomerular Filt Rate 55; Glucose Fasting 128 mg/dL (60-99); HDL Cholesterol 49 mg/dL (>40); LDL Cholesterol Calculated 92 mg/dL (<100); Potassium 4.2 mmol/L (3.3-5.1); Sodium 141 mmol/L (135-145); Triglycerides 140 mg/dL (<150)
[2023-07-17 13:18] LABS: Creatinine Urine 115.41 mg/dL; Microalbumin Urine < 5.0 mg/L
== END 2023-07-17 07:52 | disposition home or self-care (01) ==
LOC: HO.WFDLDS 07:51
PROVIDERS: Visit Provider Family Medicine
DX: Z00.00 Encounter for general adult medical examination without abnormal findings (principal); E78.5 Hyperlipidemia, unspecified; I10 Essential (primary) hypertension
CPT/HCPCS: 36415; 80053; 80061; 81001; 82043; 82570

== ENCOUNTER 2023-08-06 08:45 | Outpatient (AMB) | payer MEDICARE, SELFPAY ==
--- NOTE | 2023-08-06 08:48 | MHC.PC.OV ---
Vital Signs 08/06/23 08:58 Height 5 ft 4 in Weight 174 lb 4 oz BMI 29.9 BP 118/68 Blood Pressure Location Lt brachial Position Sitting Respiration 14 Pulse 73 Pulse Source Pulse Oximeter Temp 98.9 F Temp Source Oral Pulse Oximetry (%) 97 Oxygen Delivery Method Room Air Intake Visit Reasons: f/u diabetes, hypertension, HLD Intake Note: Patient is here for a follow up appointment. Patient shares she has no concerns at this time. 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 Accompanied by: Self / Same As Patient Allergies No Known Allergies Allergy (Verified 08/06/23 09:00) Medication List - Last Reconciled 08/06/23 by Kanu Hinkle MD amlodipine 10 mg PO DAILY 90 days atorvastatin 40 mg PO DAILY 90 days blood sugar diagnostic ([employer] Verio test strips) As directed blood-glucose meter (Fur and Mask Verio Flex Meter) To test blood sugar daily As directed, 999 days chlorthalidone 25 mg PO DAILY lancets ([employer] UltraSoft Lancets) Test blood sugars daily As directed, 90 days lisinopril 40 mg PO DAILY 90 days magnesium 400 mg PO DAILY metformin 500 mg PO DAILY 90 days Tobacco use date assessed: 05/07/23 HPI f/u diabetes, hypertension, HLD HPI Details 68 y/o female presents to f/u diabetes, hypertension, HLD. Pt had noted worsened muscular cramping with artovastatin at 40mg daily so she had went back to 20mg daily. Pt notes she had been taking the full tablet every other day with the half tablet. A1c 08/06/23 6.6%. She is on metformin 500mg daily. Lipid panel drawn 07/17/23. Reviewed labs with pt. Triglycerides 140. TC 169. LDL 92. HDL 49. Blood pressure today is 118/68. He is on lisinopril 40mg daily and amlodipine 10mg daily. [facility] Medical History Kidney stones Colon polyps Diverticulosis HLD (hyperlipidemia) HTN (hypertension) Diabetes Surgical History Hx of colonoscopy Family History Father HTN (hypertension) CVD (cardiovascular disease) Mother No problems noted. Sister No problems noted. Sister No problems noted. Son No problems noted. Son No problems noted. Son No problems noted. Son No problems noted. Daughter No problems noted. Daughter No problems noted. 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 Prieto Chan, Monie Farooq, Noe Bermudez and colleagues, with an educational quyen from [employer]. Physical exam (Primary Care) Vital Signs: Last Vital Signs Temp 98.9 F 08/06/23 08:58 Pulse 73 08/06/23 08:58 Resp 14 08/06/23 08:58 BP 118/68 08/06/23 08:58 Pulse Ox 97 08/06/23 08:58 Oxygen Delivery Method Room Air 08/06/23 08:58 BMI result Body Mass Index 29.9 Tobacco/Smoking Status: Tobacco use Status Tobacco use date assessed 05/07/23 08/06/23 08:49 Patient Tobacco Use Status Never used Tobacco 08/06/23 08:49 e-Cigarette/Vaping Use Never Used 08/06/23 08:49 Results AMB Hemoglobin A1c AMB Hemoglobin A1c 6.6 % Last Edit by Elina Sow CMA on 08/06/23 09:15 Results Reviewed Results Reviewed: Laboratory Last Values Hgb A1c (Clinic) 6.6 % (4.0-6.0) H 08/06/23 09:13 Assessment and Plan Assessment & Plan (1) Diabetes type 2, controlled: Code(s): E11.9 - Type 2 diabetes mellitus without complications Plan: A1c?6.6%.??Controlled.??Goal?is?less?than?7.0% Continue?current?medication?regimen?and?diabetic?diet Eye?exam?in?May.??Up-to-date (2) Hyperlipidemia: Code(s): E78.5 - Hyperlipidemia, unspecified Plan: LDL?now?at?goal?of?less?than?100?for?patient?with?diabetes She?is?using?a?regimen?of?atorvastatin?40/30?mg?every?other?day Continue?current?regimen Continue?diet?low?in?saturated?fats?and?cholesterol (3) Essential hypertension: Code(s): I10 - Essential (primary) hypertension Plan: Blood?pressure?is?well?controlled.??Goal?is?less?than?140/90 Continue?current?medication Orders: Orders Comprehensive [place]. Panel Fast Today Z00.00 - Encounter for general adult medical examination without abnormal findings Lipid Panel Today Z00.00 - Encounter for general adult medical examination without abnormal findings Microalbumin, Random (w Creat) Today I10 - Essential (primary) hypertension UA and rflx microscopic Today Z00.00 - Encounter for general adult medical examination without abnormal findings Complete Blood Count Auto Diff Today Z00.00 - Encounter for general adult medical examination without abnormal findings TSH reflex Free T4 Today Z00.00 - Encounter for general adult medical examination without abnormal findings Coding Level of Care Code Est Pt Level 4 (29991) Diagnoses Diabetes type 2, controlled E11.9 Hyperlipidemia E78.5 Essential hypertension I10
[2023-08-06 08:58] VITALS: BP 118/68; PULSE 73; RESP 14; TEMP 37.2; O2SAT 97; BMI 29.9
== END 2023-08-06 09:31 | disposition home or self-care (01) ==
PROVIDERS: PCP Family Medicine; Visit Provider Family Medicine
DX: E11.9 Type 2 diabetes mellitus without complications (principal); E78.5 Hyperlipidemia, unspecified; I10 Essential (primary) hypertension
CPT/HCPCS: 83036; 99214

== ENCOUNTER 2023-11-06 08:14 | Outpatient (REF) | payer MEDICARE, SELFPAY ==
[2023-11-06 11:31] LABS: MANUAL DIFF FLAG NO
[2023-11-06 11:49] LABS: Basophils Absolute Auto 0.1 X10*3/uL (0.0-0.2); Basophils Percent Auto 0.9 % (0-2); Eosinophils Absolute Auto 0.3 X10*3/uL (0.0-0.4); Eosinophils Percent Auto 4.4 % (0-4); Hematocrit 39.7 % (37.0-47.0); Imm Gran Abs Auto 0.01 X10*3/uL (0.00-0.03); Imm Gran Pct Auto 0.2 % (0.0-0.4); Lymphocytes Absolute Auto 1.8 X10*3/uL (1.2-4.9); Lymphocytes Percent Auto 31.6 % (20-40); Mean Corpuscular HGB Conc 32.7 g/dl (31.0-35.0); Mean Corpuscular Hemoglobin 28.6 pg (27.0-33.0); Mean Corpuscular Volume 87.4 fL (80.0-98.0); Mean Platelet Volume 10.9 fL (9.4-12.3); Monocytes Absolute Auto 0.4 X10*3/uL (0.1-1.2); Neutrophils Absolute Auto 3.2 x10*3/uL (2.0-8.3); Neutrophils Percent Auto 55.9 % (45-73); Platelet Count 246 X10*3/uL (160-400); Red Blood Count 4.54 X10*6/uL (4.20-5.50); Red Cell Distribution Width 13.9 % (11.0-16.0); White Blood Count 5.7 X10*3/uL (4.8-10.8)
[2023-11-06 11:50] LABS: Appearance Urine Clear; Color Urine Yellow; Glucose Urine UA Negative (Negative); Leukocyte Esterase Urine Trace (Negative); Nitrite Urine Negative (Negative); Specific Gravity - Urine 1.015 (1.005-1.025); UMIC TRIGGER UA YES; Urine Blood Negative (Negative); Urine Ketones Negative (Negative); Urine Protein Negative (Neg-Trace)
[2023-11-06 12:06] LABS: Bacteria Urine None Seen (None Seen); Hyaline Casts Urine 0-2 /LPF (0-2); RBC Urine 0-2 /HPF (0-2); Squamous Epithelial Cell Urine 0-2 /HPF (0-2); WBC Urine 0-5 /HPF (0-5)
[2023-11-06 12:21] LABS: Alanine Aminotransferase 22 U/L (0-31); Albumin Level 4.2 g/dL (3.5-5.0); Alkaline Phosphatase 46 U/L (39-117); Anion Gap 11 (12-20); Aspartate Amino Transferase 17 U/L (5-31); Bilirubin Total 0.3 mg/dL (0.0-1.0); Blood Urea Nitrogen 20 mg/dL (9-16); Calcium 9.5 mg/dL (8.4-10.2); Carbon Dioxide 27 mmol/L (22-29); Chloride 105 mmol/L (96-108); Cholesterol 160 mg/dL (<200); Estimated Glomerular Filt Rate 45; Glucose Fasting 135 mg/dL (60-99); HDL Cholesterol 49 mg/dL (>40); LDL Cholesterol Calculated 86 mg/dL (<100); Potassium 4.4 mmol/L (3.3-5.1); Sodium 139 mmol/L (135-145); Triglycerides 127 mg/dL (<150)
[2023-11-06 12:27] LABS: TSH reflex Free T4 1.08 uIU/mL (0.32-4.0)
[2023-11-06 12:46] LABS: Creatinine Urine 93.69 mg/dL; Microalbumin Urine < 5.0 mg/L
== END 2023-11-06 08:15 | disposition home or self-care (01) ==
LOC: HO.WFDLDS 08:14
PROVIDERS: Visit Provider Family Medicine
DX: Z00.00 Encounter for general adult medical examination without abnormal findings (principal); I10 Essential (primary) hypertension
CPT/HCPCS: 36415; 80053; 80061; 81001; 82043; 82570; 84443; 85025

== ENCOUNTER 2023-11-13 10:58 | Outpatient (AMB) | payer MEDICARE, SELFPAY ==
--- NOTE | 2023-11-13 11:07 | AM.OFFWIN_ITS ---
Intake Vital Signs 11/13/23 11:11 Height 5 ft 4 in Weight 171 lb BMI 29.3 BP 130/62 Blood Pressure Location Lt brachial Position Sitting Pulse 92 Pulse Source Pulse Oximeter Pulse Oximetry (%) 99 Oxygen Delivery Method Room Air Intake Visit Reasons: headache,chills,fatigue Intake Note: Patient is here today for headache, chills, fatigue, body aches, left ear pain, congestion, runny nose, and dry cough no fever started 11/12/23. OTC with little relief. No covid test at home. 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 Accompanied by: Spouse Allergies No Known Allergies Allergy (Verified 11/13/23 11:38) Medication List - Last Reconciled 11/13/23 by Shereen Walker [facility]- amlodipine 10 mg PO DAILY 90 days atorvastatin 40 mg PO DAILY 90 days blood sugar diagnostic ([employer] Verio test strips) As directed blood-glucose meter ([employer] Verio Flex Meter) To test blood sugar daily As directed, 999 days chlorthalidone 25 mg PO DAILY lancets ([employer] UltraSoft Lancets) Test blood sugars daily As directed, 90 days lisinopril 40 mg PO DAILY 90 days metformin 500 mg PO DAILY 90 days Do you need a note to return to daycare/school/sports/work: No HPI HPI Comments History of Present Illness Details Here today w/ flu like sx Started yesterday afternoon headache dizzy chills cough body aches fatigue used otc medications w some relief Not UTD on vaccines Exposed to with similar symptoms PFSH Medical History Kidney stones Colon polyps Diverticulosis HLD (hyperlipidemia) HTN (hypertension) Diabetes Surgical History Hx of colonoscopy Family History Father HTN (hypertension) CVD (cardiovascular disease) Mother No problems noted. Sister No problems noted. Sister No problems noted. Son No problems noted. Son No problems noted. Son No problems noted. Son No problems noted. Daughter No problems noted. Daughter No problems noted. 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 Current occupational exposures/hazards: No Cognitive needs: No Hearing needs: No Vision needs: No Review of Systems Const All systems reviewed & are unremarkable except as noted in HPI and below Physical Exam Vital Signs: Last Vital Signs Pulse 92 11/13/23 11:11 BP 130/62 11/13/23 11:11 Pulse Ox 99 11/13/23 11:11 Oxygen Delivery Method Room Air 11/13/23 11:11 BMI result Body Mass Index 29.3 Const Other: awake alert NAD TM intact and clear bilat Nares w/ clear drainage bilat, turbinates WNL Pharynx WNL LS CTAB RRR Assessment & Plan Assessment & Plan (1) Flu-like symptoms: Code(s): R68.89 - Other general symptoms and signs Plan: Viral swab obtained today positive for influenza A. She should follow current CDC guidelines. Tamiflu has been sent in she can take as directed. Advised to use [id number] medications for supportive care. (2) Influenza: Code(s): J11.1 - Influenza due to unidentified influenza virus with other respiratory manifestations Plan This note is constructed using voice recognition software. While every effort has been made to ensure accuracy in machinist class b, still errors may have been included Sometimes, these errors may affect the content or meaning of the given sentence . Total time spent caring for the patient today was 30 minutes. This includes time spent before the visit reviewing the chart, time spent during the visit, and time spent after the visit on documentation Orders: Orders SARS-CoV2/FLU/RSV Today R68.89 - Other general symptoms and signs Medications: New oseltamivir (Tamiflu) 75 mg PO Q12H 10 caps 0RF 5 days Patient Instructions: Influenza (flu) is an infection in the lungs and breathing passages. It is caused by the influenza virus. There are different strains, or types, of the flu virus from year to year. Unlike the common cold, the flu comes on suddenly and the symptoms can be more severe. These symptoms include a cough, congestion, fever, chills, fatigue, aches, and pains. These symptoms may last for a few weeks. Although the flu can make you feel very sick, it usually doesn't cause serious health problems. Home treatment is usually all you need for flu symptoms. But your doctor may prescribe antiviral medicine to prevent other health problems, such as pneumonia, from developing. The risk of other health problems from the flu is highest for young children (under 5), older adults (over 65), women, people with long-term health conditions, people who live in nursing homes or long-term care centres, and indigenous peoples. How can you care for yourself at home? Get plenty of rest. Drink plenty of fluids. If you have to limit fluids because of a health problem, talk with your doctor before you increase the amount of fluids you drink. Take an [id number] pain medicine if needed, such as acetaminophen (Tylenol), ibuprofen (Advil, Motrin), or naproxen (Aleve), to relieve fever, headache, and muscle aches. Read and follow all instructions on the label. No one younger than 18 should take aspirin. It has been linked to Jl syndrome, a serious illness. Take any prescribed medicine exactly as directed. Do not smoke. Smoking can make the flu worse. If you need help quitting, talk to your doctor about stop-smoking programs and medicines. These can increase your chances of quitting for good. If the skin around your nose and lips becomes sore, put some petroleum jelly (such as Vaseline) on the area. To ease coughing: Suck on cough drops or plain, hard candy. Try an dkpy-nax-qwhrnlb cough or cold medicine. Read and follow all instructions on the label. Raise your head at night with an extra pillow. This may help you rest if coughing keeps you awake. To avoid spreading the flu Wash your hands regularly, and keep your hands away from your face. Stay home from school, work, and other public places until you are feeling better and your fever has been gone for at least 24 hours. The fever needs to have gone away on its own without the help of medicine. Ask people living with you to talk to their doctors about preventing the flu. They may get antiviral medicine to keep from getting the flu from you. To prevent the flu in the future, get the flu vaccine every fall. Encourage people living with you to get the vaccine. Cover your mouth when you cough or sneeze. If you can, cough or sneeze into the bend of your elbow, not your hands. When should you call for help? Call 911 anytime you think you may need emergency care. For example, call if: You have severe trouble breathing. You have a seizure. Call your doctor or nurse advice line now or seek immediate medical care if: You have trouble breathing. You have a fever with a stiff neck or a severe headache. You have pain or pressure in your chest or belly. You have a fever or cough that returns after getting better. You feel very sleepy, dizzy, or confused. You are not urinating. You have severe muscle pain. You have severe weakness, or you are unsteady. You have medical conditions that are getting worse Watch closely for changes in your health, and be sure to contact your doctor or nurse advice line if: You do not get better as expected. You are having a problem with your medicine. Coding Level of Care Code Est Pt Level 4 (79489) Diagnoses Flu-like symptoms R68.89 Influenza J11.1
[2023-11-13 11:11] VITALS: BP 130/62; PULSE 92; O2SAT 99; BMI 29.3
== END 2023-11-13 12:02 | disposition home or self-care (01) ==
PROVIDERS: PCP Family Medicine; Visit Provider Nurse Practitioner Family
DX: R68.89 Other general symptoms and signs (principal); J11.1 Influenza due to unidentified influenza virus with other respiratory manifestations
CPT/HCPCS: 99214

== ENCOUNTER 2023-11-13 14:14 | Outpatient (REF) | payer MEDICARE, SELFPAY ==
[2023-11-13 15:03] LABS: Influenza A PCR POSITIVE (Negative); Influenza B PCR NEGATIVE (Negative); Resp Syncy Virus RNA Qual PCR NEGATIVE (Negative); SARS COV2 PCR INHOUSE NEGATIVE (Negative)
== END 2023-11-13 14:15 | disposition home or self-care (01) ==
LOC: HO.LNP 14:14
PROVIDERS: Visit Provider Nurse Practitioner Family
DX: Z11.52 Encounter for screening for COVID-19 (principal); Z20.822 Contact with and (suspected) exposure to COVID-19; R68.89 Other general symptoms and signs
CPT/HCPCS: 0241U

== ENCOUNTER 2023-11-23 08:56 | Outpatient (AMB) | payer MEDICARE, SELFPAY ==
[2023-11-23 09:03] VITALS: BP 135/62; PULSE 62; O2SAT 100; BMI 29.3
--- NOTE | 2023-11-23 09:03 | MHC.PC.OV ---
Vital Signs 11/23/23 09:03 Height 5 ft 4 in Weight 171 lb BMI 29.3 BP 135/62 Blood Pressure Location Lt brachial Position Sitting Pulse 62 Pulse Source Pulse Oximeter Pulse Oximetry (%) 100 Intake Visit Reasons: CPE with f/u labs Intake Note: Patient is here to follow up on labs. Allergies No Known Allergies Allergy (Verified 11/23/23 09:08) Medication List - Last Reconciled 11/23/23 by Kanu Hinkle MD amlodipine 10 mg PO DAILY 90 days atorvastatin 40 mg PO DAILY 90 days blood sugar diagnostic (TelovationsTouch Verio test strips) As directed blood-glucose meter (TelovationsTouch Verio Flex Meter) To test blood sugar daily As directed, 999 days chlorthalidone 25 mg PO DAILY lancets (TelovationsTouch UltraSoft Lancets) Test blood sugars daily As directed, 90 days lisinopril 40 mg PO DAILY 90 days metformin 500 mg PO DAILY 90 days oseltamivir (Tamiflu) 75 mg PO Q12H 5 days Tobacco use date assessed: 11/23/23 Fall risk assessment: No Falls in past year Last assessed Fall Risk: 11/23/23 Dental Screening Dental Screen Date: 11/23/23 Did you have a dental visit in the last 12 months?: Yes Did you have a dental problem in the last 6 months where you did not have access to dental care?: No Was dental information given to patient?: Patient has dentist HPI CPE with f/u labs HPI Details 68 y/o female presents for a CPE with f/u labs and health maintenance. Labs were drawn 11/06/23. Reviewed labs with pt. Elevated fasting glucose of 135. Triglycerides 127. TC 160. LDL 86. HDL 49. Last colonoscopy 2019. Mammogram 11/14/22 and was negative. A1c today 11/23/23 is 7.2%. She is on metformin 500mg daily. Pt reports hip pain that wraps around her hips and down her legs/hernandez. [facility] Medical History Kidney stones Colon polyps Diverticulosis HLD (hyperlipidemia) HTN (hypertension) Diabetes Surgical History Hx of colonoscopy Family History Father HTN (hypertension) CVD (cardiovascular disease) Mother No problems noted. Sister No problems noted. Sister No problems noted. Son No problems noted. Son No problems noted. Son No problems noted. Son No problems noted. Daughter No problems noted. Daughter No problems noted. 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 1. Little interest or pleasure in doing things: not at all 2. Feeling down, depressed, or hopeless: not at all 3. Trouble falling or staying asleep, or sleeping too much: not at all 4. Feeling tired or having little energy: not at all 5. Poor appetite or overeating: not at all 6. Feeling bad about yourself - or that you are a failure or have let yourself or your family down: not at all 7. Trouble concentrating on things, such as reading the newspaper or watching television: not at all 8. Moving or speaking so slowly that other people could have noticed. Or the opposite - being so fidgety or restless that you have been moving around a lot more than usual: not at all 9. Thoughts that you would be better off or of hurting yourself in some way: not at all Total score: 0 Depression Screening Interpretation: Negative Depression Screening Done: Yes 47485 - PHQ-9 Billing: Yes Source: Developed by Drs. Prieto Chan, Monie Farooq, Noe Bermudez and colleagues, with an educational quyen from [employer]. AUDIT C Alcohol Use Questionnaire (AUDIT-C) 1. How often do you have a drink containing alcohol?: Monthly or less 2. How many drinks containing alcohol do you have on a typical day when you are drinking?: 1 or 2 3. How often do you have six or more drinks on one occasion?: Never Total Score: 1 KENNEY-7 AMB Questionnaire KENNEY-7 Date KENNEY - 7 assessed: 11/23/23 Feeling nervous, anxious, or on edge: 0 = Not at all Not being able to stop or control worryin = Not at all Worrying too much about different things: 0 = Not at all Trouble relaxin = Not at all Being so restless that it is hard to sit still: 0 = Not at all Becoming easily annoyed or irritable: 0 = Not at all Feeling afraid as if something awful might happen: 0 = Not at all Total KENNEY-7 score (0-4 normal; 5-9 mild; 10-14 moderate; 15-21 severe): 0 Source: Developed by Drs. Prieto Chan, Monie Farooq, Noe Bermudez and colleagues, with an educational quyen from [employer]. KENNEY-7 Assessment Billing KENNEY-7 Assessment Tool: KENNEY-7 Assessment [id number] Review of Systems Const Denies chills, Denies fatigue, Denies fever(s), Denies headache(s) and Denies weakness Eyes Denies change in vision ENT Denies dizziness, Denies headache(s), Denies hearing loss, Denies nasal congestion, Denies sinus pain, Denies sinus pressure and Denies sore throat Card Denies chest pain, Denies lightheadedness, Denies dyspnea and Denies other (palpitations) Resp Denies cough, Denies dyspnea and Denies wheezing GI Denies abdominal pain, Denies melena, Denies hematochezia, Denies change in bowel habits, Denies dyspepsia and Denies nausea Denies hematuria and Denies dysuria Musc Denies abnormal gait, Denies myalgias, Denies arthralgias, Denies numbness and Denies tingling Skin/Breast Denies rash, Denies unusual bruising and Denies wounds Neuro Denies abnormal gait, Denies dizziness, Denies headache(s), Denies memory loss, Denies numbness, Denies Sensory deficit (Neuro), Denies tingling and Denies weakness Psych Denies anxiety, Denies depression and Denies memory loss Endo Denies cold intolerance, Denies fatigue, Denies heat intolerance, Denies polydipsia and Denies polyuria Alexander/Lymph Denies easy bleeding and Denies easy bruising Aller/Immun Denies wheezing Physical exam (Primary Care) Vital Signs: Last Vital Signs Pulse 62 11/23/23 09:03 BP 135/62 11/23/23 09:03 Pulse Ox 100 11/23/23 09:03 BMI result Body Mass Index 29.3 Tobacco/Smoking Status: Tobacco use Status Tobacco use date assessed 11/23/23 11/23/23 09:09 Patient Tobacco Use Status Never used Tobacco 11/23/23 09:07 e-Cigarette/Vaping Use Never Used 11/23/23 09:07 PHQ-9: PHQ-9 Score PHQ-9: Total score 0 11/23/23 09:11 Depression Screening Interpretation: Negative Const General: no acute distress, well developed, alert and awake Nutritional Appearance: well nourished Orientation/consciousness: patient oriented x3 HENMT Head: Yes normocephalic and Yes atraumatic Ears: hearing grossly normal bilaterally and TM's normal bilaterally General nose exam: Normal external nose present and Normal nares present Mouth: Normal oral and palatal mucosa present and moist mucous membranes Teeth and gingiva: dentition normal Throat: Yes posterior oropharynx normal Eyes General: appearance normal, both eyes and all related structures Pupils: Equal, round and reactive pupils present and Pupil accommodation reflex normal EOM: EOMs intact bilaterally Neck Neck: Yes normal visual inspection, Yes no lymphadenopathy and Yes trachea midline Thyroid: Thyroid normal Carotids: no bruits Lymphatic: no lymphadenopathy noted Chest Chest palpation & inspection: normal inspection of the chest Resp Effort & Inspection: normal respiratory effort Auscultation: clear to auscultation bilaterally Cardio Rate: regular rate Rhythm: regular rhythm Heart sounds: S1 normal heart sound present, S2 normal heart sound present, no gallops, no murmurs and no rubs Bruits: no abdominal aortic bruits and no carotid bruits GI Palpation (GI): No Abdominal aortic bruit present, Soft to palpation, nontender, No hepatosplenomegaly present and No Rebound tenderness present Auscultation: normal bowel sounds General: Yes no CVA tenderness Back/Spine/Pelvis Back: no CVA tenderness Cervical Spine: cervical ROM normal and No Cervical spine tenderness Thoracic/Lumbar Spine: thoraco-lumbar ROM normal, No pain with thoraco-lumbar ROM, No thoracic spinal tenderness and No lumbar spinal tenderness Skin Lesions: no lesions Rashes: no rashes Trauma: no lacerations or abrasions Wounds: no wounds Nails: normal Neuro General: patient oriented x3 Cranial nerves: Yes Equal, round and reactive pupils present Cognition (Neuro): normal cognition Gait exam (Neuro): Normal gait present Motor exam (neuro): 5/5 motor strength present throughout Sensory Exam: No Sensory deficit (Neuro) Deep tendon reflexes (DTR's): Right patellar reflex intensity grade: 2+ and Left patellar reflex intensity grade: 2+ Extrem General: Yes normal to inspection and No edema Psych Appearance: grossly normal Affect: normal affect Attitude: cooperative Thought process: Normal thought process present Results AMB Hemoglobin A1c AMB Hemoglobin A1c 7.2 % Last Edit by Shana Dawkins CMA on 11/23/23 09:21 Assessment and Plan Assessment & Plan (1) Adult general medical exam: Code(s): Z00.00 - Encounter for general adult medical examination without abnormal findings Plan: 68-year-old?female?presents?for?complete?physical?exam Encouraged?healthy?diet?with?active?lifestyle?and?plenty?of?exercise (2) Hyperlipidemia: Code(s): E78.5 - Hyperlipidemia, unspecified Plan: Lipids?are?controlled?on?atorvastatin?40?mg?daily Continue?current?medication?regimen (3) Diabetes type 2, controlled: Code(s): E11.9 - Type 2 diabetes mellitus without complications Plan: A1c?has?worsened?and?is?higher?than?goal?of?less?than?7.0% Increased?metformin?from?500?mg?daily?to?500?mg?a.m.?and?250?mg?p.m. (4) Essential hypertension: Code(s): I10 - Essential (primary) hypertension Plan: Blood?pressure?is?controlled.??Goal?is?less?than?140/90 Continue?current?medication (5) Breast cancer screening by mammogram: Code(s): Z12.31 - Encounter for screening mammogram for malignant neoplasm of breast Plan: Due?for?mammogram?and?has?appointment?in?May. Mammogram?last?year?was?okay Mammograms?managed?by?her?test engineer nuclear equipment (6) Screening for osteoporosis: Code(s): Z13.820 - Encounter for screening for osteoporosis Plan: She?wants?to?have?her?test engineer nuclear equipment,?Kanu?Asya order?her?mammograms?and?bone?density?test Advised?her?she?is?likely?due?for?bone?density?test. She?will?ask?that?the?results?be?forwarded?to?me?as?well. (7) Screening for colon cancer: Code(s): Z12.11 - Encounter for screening for malignant neoplasm of colon Plan: Last?colonoscopy?was?in?2019?with?Dr. Hammer She?is?due?for?follow-up?and?will?call?GI. (8) Screening for cervical cancer: Code(s): Z12.4 - Encounter for screening for malignant neoplasm of cervix Plan: Followed?by??Kanu?Asya (9) Nephrolithiasis: Code(s): N20.0 - Calculus of kidney Plan: Hydrate?well [facility]?wants?to?follow?her?annually.??Referral?is?made (10) Hip pain: Code(s): M25.559 - Pain in unspecified hip Plan: Left?hip?pain?that?radiates?down?anterior?thigh Possible?nerve?impingement. No?current?symptoms?but?she?will?let?me?know?if?this?resumes Plan Recent?CT?scan?at[facility]on?10/05/2023?showed?cholelithiasis?without?acute?inflammation,?some?tiny?nonobstructing?renal?calculi?bilaterally,?small?stable?hypodense?lesions?within?the?kidneys?which?were?unchanged?from?prior?study,?mild? fat?stranding?at?the?root?of?the?mesentery?and?some?prominence?of?left?mesenteric?lymph?nodes?without?marva?lymphadenopathy.. Impression?was?tiny?nonobstructing?renal?calculi?bilaterally. Orders: Orders AMB Hemoglobin A1c Today Z13.9 - Encounter for screening, unspecified Referrals Urology Referral N20.0 - Calculus of kidney Dermatology Referral L98.9 - Disorder of the skin and subcutaneous tissue, unspecified Medications: Changed From metformin 500 mg PO DAILY 90 days 90 tabs 1RF To metformin 500mg AM and 250mg PM orally daily; 90 days 135 tabs 1RF Coding Level of Care Code Est Pt Level 3 (82296) Est Pt Prev Care >65y(11900) Diagnoses Adult general medical exam Z00.00 Hyperlipidemia E78.5 Diabetes type 2, controlled E11.9 Essential hypertension I10 Breast cancer screening by mammogram Z12.31 Screening for osteoporosis Z13.820 Screening for colon cancer Z12.11 Screening for cervical cancer Z12.4 Nephrolithiasis N20.0 Hip pain M25.559 Additional Codes KENNEY-7 Assessment Billing - KENNEY-7 Assessment Tool: KENNEY-7 Assessment [id number] ([id number])
== END 2023-11-23 09:42 | disposition home or self-care (01) ==
PROVIDERS: PCP Family Medicine; Visit Provider Family Medicine
DX: Z00.00 Encounter for general adult medical examination without abnormal findings (principal); E78.5 Hyperlipidemia, unspecified; E11.69 Type 2 diabetes mellitus with other specified complication; M25.552 Pain in left hip; I10 Essential (primary) hypertension; Z12.31 Encounter for screening mammogram for malignant neoplasm of breast; N20.0 Calculus of kidney; Z13.820 Encounter for screening for osteoporosis; Z12.11 Encounter for screening for malignant neoplasm of colon
CPT/HCPCS: 83036; 99213; 99397

== ENCOUNTER 2024-02-15 09:09 | Outpatient (REF) | payer MEDICARE, SELFPAY ==
[2024-02-15 11:36] LABS: Appearance Urine Clear; Color Urine Yellow; Glucose Urine UA Negative (Negative); Leukocyte Esterase Urine Negative (Negative); Nitrite Urine Negative (Negative); PH 6.5 (5.0-9.0); Specific Gravity - Urine <= 1.005 (1.005-1.025); Urine Blood Negative (Negative); Urine Ketones Negative (Negative); Urine Protein Negative (Neg-Trace)
[2024-02-15 12:18] LABS: Alanine Aminotransferase 23 U/L (0-31); Albumin Level 4.5 g/dL (3.5-5.0); Alkaline Phosphatase 41 U/L (39-117); Anion Gap 14 (12-20); Aspartate Amino Transferase 22 U/L (5-31); Bilirubin Total 0.4 mg/dL (0.0-1.0); Blood Urea Nitrogen 20 mg/dL (9-16); Calcium 10.3 mg/dL (8.4-10.2); Carbon Dioxide 25 mmol/L (22-29); Chloride 106 mmol/L (96-108); Estimated Glomerular Filt Rate 57; Glucose Fasting 103 mg/dL (60-99); Potassium 4.3 mmol/L (3.3-5.1); Sodium 141 mmol/L (135-145); Total Protein 7.3 g/dL (6.5-8.0)
== END 2024-02-15 09:10 | disposition home or self-care (01) ==
LOC: HO.WFDLDS 09:09
PROVIDERS: Visit Provider Family Medicine
DX: Z00.00 Encounter for general adult medical examination without abnormal findings (principal); I10 Essential (primary) hypertension
CPT/HCPCS: 36415; 80053; 81003

== ENCOUNTER 2024-02-22 08:44 | Outpatient (AMB) | payer MEDICARE, SELFPAY ==
[2024-02-22 08:46] VITALS: BP 130/72; PULSE 81; O2SAT 99; BMI 29.3
--- NOTE | 2024-02-22 08:46 | A.OFFPC_ITS ---
Vital Signs 02/22/24 08:46 Height 5 ft 4 in Weight 171 lb BMI 29.3 BP 130/72 Blood Pressure Location Lt brachial Position Sitting Pulse 81 Pulse Source Pulse Oximeter Pulse Oximetry (%) 99 Oxygen Delivery Method Room Air Intake Visit Reasons: f/u DM Intake Note: Patient is here for follow up on diabetes. Allergies No Known Allergies Allergy (Verified 02/22/24 08:49) Medication List - Last Reconciled 02/22/24 by Kanu Hinkle MD amlodipine 10 mg PO DAILY 90 days atorvastatin 40 mg PO DAILY 90 days blood sugar diagnostic (MedClimateTouch Verio test strips) As directed blood-glucose meter (MedClimateTouch Verio Flex Meter) To test blood sugar daily As directed, 999 days chlorthalidone 25 mg PO DAILY lancets (MedClimateTouch UltraSoft Lancets) Test blood sugars daily As directed, 90 days lisinopril 40 mg PO DAILY 90 days metformin 500mg AM and 250mg PM orally daily; 90 days oseltamivir (Tamiflu) 75 mg PO Q12H 5 days Tobacco use date assessed: 02/22/24 Fall risk assessment: No Falls in past year Last assessed Fall Risk: 02/22/24 Dental Screening Dental Screen Date: 11/23/23 HPI f/u DM HPI Details 68 y/o female presents to f/u diabetes a nd f/u on her renal function. Had increased metformin from 500mg daily to 500mg am and 250mg pm. Last A1c 11/23/23 7.2%. A1c today 02/22/24 is 6.4%. Pt states she did not make her metformin change. Labs were drawn 02/15/24. Reviewed labs with pt. Creatinine level 0.98 mg/dL. [facility] Medical History Kidney stones Colon polyps Diverticulosis HLD (hyperlipidemia) HTN (hypertension) Diabetes Surgical History Hx of colonoscopy Family History Father HTN (hypertension) CVD (cardiovascular disease) Mother No problems noted. Sister No problems noted. Sister No problems noted. Son No problems noted. Son No problems noted. Son No problems noted. Son No problems noted. Daughter No problems noted. Daughter No problems noted. 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 Prieto Chan, Monie Farooq, Noe Bermudez and colleagues, with an educational quyen from [employer] ([employer]). Review of Systems Const Denies chills, Denies fatigue, Denies fever(s), Denies headache(s) and Denies weakness ENT Denies dizziness and Denies headache(s) Card Denies dyspnea Resp Denies cough, Denies dyspnea, Denies wheezing and Denies other (shortness of breath) Musc Denies numbness and Denies tingling Neuro Denies dizziness, Denies headache(s), Denies numbness, Denies tingling and Denies weakness Psych Denies anxiety and Denies depression Endo Denies fatigue Aller/Immun Denies wheezing Physical exam (Primary Care) Vital Signs: Last Vital Signs Pulse 81 02/22/24 08:46 BP 130/72 02/22/24 08:46 Pulse Ox 99 02/22/24 08:46 Oxygen Delivery Method Room Air 02/22/24 08:46 BMI result Body Mass Index 29.3 Tobacco/Smoking Status: Tobacco use Status Tobacco use date assessed 02/22/24 02/22/24 08:51 Patient Tobacco Use Status Never used Tobacco 02/22/24 08:47 e-Cigarette/Vaping Use Never Used 02/22/24 08:47 Const General: well developed; No acute distress Nutritional Appearance: well nourished Orientation/consciousness: patient oriented x3 HENMT Head: Yes normocephalic and Yes atraumatic Eyes General: appearance normal, both eyes and all related structures Pupils: Equal, round and reactive pupils present EOM: EOMs intact bilaterally Resp Effort & Inspection: normal respiratory effort Auscultation: clear to auscultation bilaterally Cardio Rate: regular rate Rhythm: regular rhythm Heart sounds: S1 normal heart sound present, S2 normal heart sound present, no gallops, no murmurs and no rubs Neuro General: patient oriented x3 and gait normal Cranial nerves: Yes Equal, round and reactive pupils present Psych Affect: normal affect Results AMB Hemoglobin A1c AMB Hemoglobin A1c 6.4 % Last Edit by Shana Dawkins CMA on 02/22/24 09:04 Results Reviewed Results Reviewed: Laboratory Last Values Hgb A1c (Clinic) 6.4 % (4.0-6.0) H 02/22/24 09:03 Assessment and Plan Assessment & Plan (1) Diabetes type 2, controlled: Code(s): E11.9 - Type 2 diabetes mellitus without complications Plan: A1c?6.4%?is?much?improved despite?not?making?any?changes?to?her?medication. Goal?is?less?than?7.0% Also?following?her?renal?function?as?GFR?was?a?little?low?and?I?en couraged?her?to?work?on?improved?hydration. Renal?function?looks?okay?and?we?will?continue?to?follow Last?diabetic?eye?exam?was?May?2022.??She?has?an?upcoming?appointment?in?April Orders: Orders AMB Hemoglobin A1c Today Z13.9 - Encounter for screening, unspecified Medications: Changed From metformin 500mg AM and 250mg PM orally daily; 90 days 135 tabs 1RF To metformin orally daily; 500 mg PO DAILY 90 days 90 tabs 3RF Coding Level of Care Code Est Pt Level 3 (21654) Diagnoses Diabetes type 2, controlled E11.9
== END 2024-02-22 09:16 | disposition home or self-care (01) ==
PROVIDERS: PCP Family Medicine; Visit Provider Family Medicine
DX: E11.9 Type 2 diabetes mellitus without complications (principal)
CPT/HCPCS: 83036; 99213

== ENCOUNTER 2024-03-02 13:36 | Outpatient (AMB) | payer MEDICARE, SELFPAY ==
--- NOTE | 2024-03-02 13:41 | A.OFFPC_ITS ---
Vital Signs 03/02/24 13:43 Height 5 ft 4 in Weight 168 lb 6 oz BMI 28.9 BP 128/70 Blood Pressure Location Lt brachial Position Sitting Pulse 74 Pulse Source Pulse Oximeter Pulse Oximetry (%) 96 Oxygen Delivery Method Room Air Intake Visit Reasons: ep/ possible shingles? nghia nielsen suzi Intake Note: Patient is here with rash, possibly shingles, since yesterday morning. Allergies No Known Allergies Allergy (Verified 03/02/24 13:44) Tobacco use date assessed: 03/02/24 Fall risk assessment: No Falls in past year Last assessed Fall Risk: 03/02/24 Dental Screening Dental Screen Date: 11/23/23 HPI ep/ possible shingles? oksia nielsen suzi HPI Details 68 y/o female presents today with concer ns of shingles. She has complaints of a rash since yesterday morning. She denies any pain associated with the rash. [facility] Medical History Kidney stones Colon polyps Diverticulosis HLD (hyperlipidemia) HTN (hypertension) Diabetes Surgical History Hx of colonoscopy Family History Father HTN (hypertension) CVD (cardiovascular disease) Mother No problems noted. Sister No problems noted. Sister No problems noted. Son No problems noted. Son No problems noted. Son No problems noted. Son No problems noted. Daughter No problems noted. Daughter No problems noted. 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 Prieto Chan, Monie Farooq, Noe Bermudez and colleagues, with an educational quyen from [employer]. Review of Systems Const Denies chills, Denies fatigue, Denies fever(s), Denies headache(s) and Denies weakness ENT Denies dizziness and Denies headache(s) Card Denies dyspnea Resp Denies cough, Denies dyspnea, Denies wheezing and Denies other (shortness of breath) Musc Denies numbness and Denies tingling Skin/Breast Reports rash Neuro Denies dizziness, Denies headache(s), Denies numbness, Denies tingling and Denies weakness Psych Denies anxiety and Denies depression Endo Denies fatigue Aller/Immun Denies wheezing Physical exam (Primary Care) Vital Signs: Last Vital Signs Pulse 74 03/02/24 13:43 BP 128/70 03/02/24 13:43 Pulse Ox 96 03/02/24 13:43 Oxygen Delivery Method Room Air 03/02/24 13:43 BMI result Body Mass Index 28.9 Tobacco/Smoking Status: Tobacco use Status Tobacco use date assessed 03/02/24 03/02/24 13:47 Patient Tobacco Use Status Never used Tobacco 03/02/24 13:42 e-Cigarette/Vaping Use Never Used 03/02/24 13:42 Const General: well developed; No acute distress Nutritional Appearance: well nourished Orientation/consciousness: patient oriented x3 HENMT Head: Yes normocephalic and Yes atraumatic Eyes General: appearance normal, both eyes and all related structures Pupils: Equal, round and reactive pupils present EOM: EOMs intact bilaterally Resp Effort & Inspection: normal respiratory effort Skin Other: Rash on upper chest, neck, erythematous with wheeles Neuro General: patient oriented x3 and gait normal Cranial nerves: Yes Equal, round and reactive pupils present Psych Affect: normal affect Assessment and Plan Assessment & Plan (1) Rash: Code(s): R21 - Rash and other nonspecific skin eruption Plan: [place]?of?wheeles at?upper?chest?and?neck Appears?to?be?a?contact?dermatitis?or?hypersensitivity?reaction. This?does?not?appear?to?be?a?shingles?rash?as?patient?suspected. Will?give?her?a?script?for?betamethasone?which?he?can?use?twice?a?day She?can?also?use?calamine?lotion?through?her?day Cool?showers?or?compresses She?can?use?Benadryl?at?night Call?or?return?to?office?if?worsening?or?not?improving Medications: New betamethasone valerate 0.1% 1 appl topical BID 10 days PRN 60 grams 1RF skin irritation Coding Level of Care Code Est Pt Level 3 (13398) Diagnoses Rash R21
[2024-03-02 13:43] VITALS: BP 128/70; PULSE 74; O2SAT 96; BMI 28.9
== END 2024-03-02 16:07 | disposition home or self-care (01) ==
PROVIDERS: PCP Family Medicine; Visit Provider Family Medicine
DX: R21 Rash and other nonspecific skin eruption (principal)
CPT/HCPCS: 99213

== ENCOUNTER 2024-06-29 09:38 | Outpatient (AMB) | payer MEDICARE, SELFPAY ==
--- NOTE | 2024-06-29 09:57 | A.OFFPC_ITS ---
Vital Signs 06/29/24 10:01 Height 5 ft 4 in Weight 167 lb BMI 28.7 BP 104/60 Blood Pressure Location Lt brachial Position Sitting Respiration 12 Pulse 71 Pulse Source Pulse Oximeter Temp 96.2 F L Temp Source Tympanic Pulse Oximetry (%) 99 Oxygen Delivery Method Room Air Intake Visit Reasons: f/u Diabetes Intake Note: F/U DM Allergies No Known Allergies Allergy (Verified 06/29/24 09:58) Tobacco use date assessed: 03/02/24 Dental Screening Dental Screen Date: 11/23/23 HPI f/u Diabetes HPI Details 69 y/o female presents to f/u diabetes. A1c today 06/29/24 5.8%. She is on metformin 500mg daily. Blood pressure today 104/60, 71p. .She is on lisinopril 40mg, chlorthalido ne 25mg, amlodipine 10mg daily. She would like a referral to urology for kidney stones. HPI Comments History of Present Illness Details Documentation assistance for Kanu Hinkle MD, was provided by Harris Núñez, Ev[employer] Managing Director on 06/29/2024 at 10:27 AM EST. I, Dr. Hinkle, have read, observed, and verified documentation. [facility]LY [facility] Medical History Kidney stones Colon polyps Diverticulosis HLD (hyperlipidemia) HTN (hypertension) Diabetes Surgical History Hx of colonoscopy Family History Father HTN (hypertension) CVD (cardiovascular disease) Mother No problems noted. Sister No problems noted. Sister No problems noted. Son No problems noted. Son No problems noted. Son No problems noted. Son No problems noted. Daughter No problems noted. Daughter No problems noted. 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 Prieto Chan, Monie Farooq, Noe Bermudez and colleagues, with an educational quyen from [employer]. Review of Systems Const Denies chills, Denies fatigue, Denies fever(s), Denies headache(s) and Denies weakness ENT Denies dizziness and Denies headache(s) Card Denies dyspnea Resp Denies cough, Denies dyspnea, Denies wheezing and Denies other (shortness of breath) Musc Denies numbness and Denies tingling Neuro Denies dizziness, Denies headache(s), Denies numbness, Denies tingling and Denies weakness Psych Denies anxiety and Denies depression Endo Denies fatigue Aller/Immun Denies wheezing Physical exam (Primary Care) Vital Signs: Last Vital Signs Temp 96.2 F L 06/29/24 10:01 Pulse 71 06/29/24 10:01 Resp 12 06/29/24 10:01 BP 104/60 06/29/24 10:01 Pulse Ox 99 06/29/24 10:01 Oxygen Delivery Method Room Air 06/29/24 10:01 BMI result Body Mass Index 28.7 Tobacco/Smoking Status: Tobacco use Status Tobacco use date assessed 03/02/24 06/29/24 09:58 Patient Tobacco Use Status Never used Tobacco 06/29/24 09:58 e-Cigarette/Vaping Use Never Used 06/29/24 09:58 Const General: well developed; No acute distress Nutritional Appearance: well nourished Orientation/consciousness: [facility]: Yes normocephalic and Yes atraumatic Eyes General: appearance normal, both eyes and all related structures Pupils: Equal, round and reactive pupils present EOM: EOMs intact bilaterally Resp Effort & Inspection: normal respiratory effort Auscultation: clear to auscultation bilaterally Cardio Rate: regular rate Rhythm: regular rhythm Heart sounds: S1 normal heart sound present, S2 normal heart sound present, no gallops, no murmurs and no rubs Neuro General: patient oriented x3 and gait normal Cranial nerves: Yes Equal, round and reactive pupils present Psych Affect: normal affect Assessment and Plan Assessment & Plan (1) Diabetes type 2, controlled: Code(s): E11.9 - Type 2 diabetes mellitus without complications Plan: A1c?5.8%.??Good?control.??Goal?is?less?than?7.0% Continue?current?medication Continue?working?at?diabetic?diet,?exercise?and?weight?loss Diabetic?retinal?exam?in?April?was?negative?for?retinopathy.??Continue?annual?scr eening (2) Essential hypertension: Code(s): I10 - Essential (primary) hypertension Plan: Blood?pressure?is?controlled.??Goal?is?less?than?140/90 Continue?current?medication (3) Kidney stones: Code(s): N20.0 - Calculus of kidney Plan: Patient?has?appointment?with?her?urologist?and?needs?an?updated?referral Referred (4) Neoplasm of uncertain behavior of skin: Code(s): D48.5 - Neoplasm of uncertain behavior of skin Plan: Neoplasm?on?bridge?of?nose Possible?actinic?keratosis?or?squamous?cell?tumor. 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
[2024-06-29 10:01] VITALS: BP 104/60; PULSE 71; RESP 12; TEMP 35.7; O2SAT 99; BMI 28.7
== END 2024-06-29 10:29 | disposition home or self-care (01) ==
PROVIDERS: PCP Family Medicine; Visit Provider Family Medicine
DX: E11.9 Type 2 diabetes mellitus without complications (principal); I10 Essential (primary) hypertension; N20.0 Calculus of kidney; D48.5 Neoplasm of uncertain behavior of skin

== ENCOUNTER → 2024-06-29 09:38 | Outpatient (BNVA) | payer MEDICARE, SELFPAY | PROVIDERS: PCP Family Medicine; Visit Provider Family Medicine | DX: E11.9 Type 2 diabetes mellitus without complications (principal); I10 Essential (primary) hypertension; N20.0 Calculus of kidney; D48.5 Neoplasm of uncertain behavior of skin | CPT/HCPCS: 99212 ==

== ENCOUNTER 2024-12-06 07:42 | Outpatient (AMB) | payer MEDICARE, SELFPAY ==
--- NOTE | 2024-12-06 07:57 | A.OFFVIS_ITS ---
Vital Signs 12/06/24 07:59 Height 5 ft 4 in Weight 169 lb BMI 29.0 BP 120/64 Blood Pressure Location Lt brachial Position Sitting Pulse 75 Intake Visit Reasons: colon polyps Intake Note: Patient new consult for Colon polyps. Last Colonoscopy was 2019 with 5 years recall. Patient denies any GI issues for today visit. First Assistant Manager Required: No Accompanied by: Self / Same As Patient Allergies No Known Allergies Allergy (Verified 12/06/24 07:57) Medication List - Last Reconciled 12/06/24 by Swetha Hammer MD amlodipine 10 mg PO DAILY 90 days atorvastatin 40 mg PO DAILY 90 days blood sugar diagnostic (Smash BucketTouch Verio test strips) As directed blood-glucose meter (Smash BucketTouch Verio Flex Meter) To test blood sugar daily As directed, 999 days chlorthalidone 25 mg PO DAILY lancets (Smash BucketTouch UltraSoft Lancets) Test blood sugars daily As directed, 90 days lisinopril 40 mg PO DAILY 90 days metformin 500 mg PO DAILY 90 days HPI HPI colon polyps: Details: GI clinic visit for this 69 YF for FU of colon polyps TODAY'S VISIT: Patient denies any GI issues for today visit. Patient denies symptoms of heartburn, dysphagia, nausea, vomiting, change in appetite or weight. Denies recent change in bowel habits, constipation, diarrhea, black stools or rectal bleeding. Patient has DM, hypertension and kidney stones and denies major cardiac or pulmonary problems, loud snoring or sleep apnea Denies problems with anesthesia in the past. Denies being on chronic anticoagulation. Patient's Dad had colon polyps and she denies known family history of colon cancer or other GI malignancies. LABS IN [place] : Reviewed IMAGING STUDIES: Cholelithiasis on CT scan done at [facility] [place] ENDOSCOPIC STUDIES: 07/2020 COLONOSCOPY SHOWED: Colonoscopy Findings: Three polyps removed Moderate diverticulosis seen in the left colon Moderate hemorrhoids on retroflexed exam. Plan: Repeat Colonoscopy interval based on path results - in 3 years if polyps are adenomatous and 5 years due to a hx of adenomatous colon polyps. [facility] Medical History (Updated 12/06/24 @ 08:22 by Swetha Hammer MD) Kidney stones Colon polyps Diverticulosis HLD (hyperlipidemia) HTN (hypertension) Diabetes Surgical History Hx of colonoscopy Family History Father HTN (hypertension) CVD (cardiovascular disease) Mother No problems noted. Sister No problems noted. Sister No problems noted. Son No problems noted. Son No problems noted. Son No problems noted. Son No problems noted. Daughter No problems noted. Daughter No problems noted. 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 Current occupational exposures/hazards: No Cognitive needs: No Hearing needs: No Vision needs: No Review of Systems Const Denies fever(s), Denies headache(s) and Denies weight loss Eyes Denies eye discharge and Denies irritation ENT Reports Normal hearing present, Denies dysphagia, Denies dizziness and Denies headache(s) Card Denies chest pain, Denies leg edema and Denies dyspnea on exertion Resp Denies cough, Denies dyspnea on exertion and Denies wheezing GI Denies abdominal pain, Denies change in bowel habits, Denies dysphagia and Denies heartburn Denies difficulty voiding, Denies dysuria and Reports other (Frequent urination) Musc Denies back pain, Reports arthralgias (toes during sleep) and Reports other (arthritis) Skin/Breast Denies pruritus, Denies rash and Denies jaundice Neuro Reports Normal hearing present, Denies Abnormal speech present, Denies dizziness, Denies headache(s) and Denies seizure-like activity Psych Denies anxiety, Denies depression and Denies panic attacks Endo Denies cold intolerance, Denies flushing and Denies heat intolerance Alexander/Lymph Denies easy bleeding and Denies easy bruising Aller/Immun Denies wheezing Physical Exam Vital Signs: Last Vital Signs Pulse 75 12/06/24 07:59 BP 120/64 12/06/24 07:59 BMI result Body Mass Index 29.0 Const General: healthy appearing and no acute distress Nutritional Appearance: overweight Orientation/consciousness: patient oriented x3 Limitations: no limitations HEENT Head: Yes normal to inspection Ears: hearing grossly normal bilaterally Eyes Sclerae: sclerae normal Pupils: Equal, round and reactive pupils present Neck Neck: Yes normal visual inspection Chest Chest palpation & inspection: normal inspection of the chest Resp Effort & Inspection: normal respiratory effort Auscultation: clear to auscultation bilaterally Cardio Palpation: normal PMI Rate: regular rate Rhythm: regular rhythm Heart sounds: S1 normal heart sound present, S2 normal heart sound present and no murmurs GI Palpation (GI): Soft to palpation, nontender and No hepatosplenomegaly present Auscultation: normal bowel sounds Rectal Exam - Female: deferred Skin General skin exam: no rashes or lesions noted Neuro General: patient oriented x3, gait normal and moves all extremities Cranial nerves: Yes Equal, round and reactive pupils present and Yes Normal hearing present Speech: No Abnormal speech present Psych Appearance: grossly normal Mental Status: mental status grossly normal Assessment & Plan Assessment & Plan (1) Cholelithiasis: Code(s): K80.20 - Calculus of gallbladder without cholecystitis without obstruction Category: Medical (2) Diverticulosis: Code(s): K57.90 - Diverticulosis of intestine, part unspecified, without perforation or abscess without bleeding Category: Medical (3) Colon polyps: Code(s): K63.5 - Polyp of colon Category: Medical Plan 69 YF with diabetes mellitus, hypertension and history of kidney stones here for FU of colon polyps Patient has DM, hypertension and kidney stones and denies major cardiac or pulmonary problems, loud snoring or sleep apnea Denies problems with anesthesia in the past. Denies being on chronic anticoagulation. Patient's Dad had colon polyps and she denies known family history of colon cancer or other GI malignancies. Patient advised to schedule a colonoscopy for surveillance of colon polyps. Medications: New bisacodyl (Dulcolax (bisacodyl)) Take 4 tablets at 12 pm the day before colonoscopy appointment 20 mg (4 x 5 mg) PO ONCE 1 day 4 tabs 0RF colon prep polyethylene glycol 3350 (Miralax) Mix Miralax with 64 oz(8 cups) of Crystal light. Take 2 tablets of Dulcolax qt 12 pm. Wait to have your 1st bowel movement, then begin drinking Miralax. Drink a glass of Miralax every 10-15 minutes until you are finished. You will drink at least another 4 cups of clear liquid of your choice over the next 2 hours. Please drink as many clear liquids as possible You may have clear liquids up to four hours before your procedure 17 grams PO DAILY 1 day 238 grams 0RF Coding Level of Care Code Est Pt Level 4 (46656) Diagnoses Cholelithiasis K80.20 Diverticulosis K57.90 Colon polyps K63.5 Time Spent (min) 21
[2024-12-06 07:59] VITALS: BP 120/64; PULSE 75; BMI 29.0
== END 2024-12-06 08:35 | disposition home or self-care (01) ==
PROVIDERS: PCP Family Medicine; Visit Provider Internal Medicine Gastroenterology
DX: K80.20 Calculus of gallbladder without cholecystitis without obstruction (principal); K57.90 Diverticulosis of intestine, part unspecified, without perforation or abscess without bleeding; K63.5 Polyp of colon
CPT/HCPCS: 99214

== ENCOUNTER → 2024-12-06 07:42 | Outpatient (BNVA) | payer MEDICARE, SELFPAY | PROVIDERS: PCP Family Medicine; Visit Provider Internal Medicine Gastroenterology | DX: K80.20 Calculus of gallbladder without cholecystitis without obstruction (principal); K57.90 Diverticulosis of intestine, part unspecified, without perforation or abscess without bleeding; K63.5 Polyp of colon | CPT/HCPCS: 99212 ==

== ENCOUNTER 2025-02-16 08:54 | Outpatient (REF) | payer MEDICARE, SELFPAY ==
[2025-02-16 11:34] LABS: Appearance Urine Clear; Color Urine Yellow; Glucose Urine UA Negative (Negative); Leukocyte Esterase Urine Small (1+) (Negative); Nitrite Urine Negative (Negative); PH 5.5 (5.0-9.0); Specific Gravity - Urine 1.015 (1.005-1.025); UMIC TRIGGER UA YES; Urine Blood Negative (Negative); Urine Ketones Negative (Negative); Urine Protein Negative (Neg-Trace)
[2025-02-16 11:41] LABS: Bacteria Urine Trace (None Seen); Hyaline Casts Urine 0-2 /LPF (0-2); RBC Urine 0-2 /HPF (0-2)
[2025-02-16 11:46] LABS: MANUAL DIFF FLAG NO
[2025-02-16 11:51] LABS: Basophils Percent Auto 0.5 % (0-2); Eosinophils Absolute Auto 0.1 X10*3/uL (0.0-0.4); Eosinophils Percent Auto 2.5 % (0-4); Hematocrit 37.8 % (37.0-47.0); Hemoglobin 12.4 g/dl (12.0-16.0); Imm Gran Abs Auto 0.01 X10*3/uL (0.00-0.03); Imm Gran Pct Auto 0.2 % (0.0-0.4); Lymphocytes Absolute Auto 1.6 X10*3/uL (1.2-4.9); Lymphocytes Percent Auto 27.9 % (20-40); Mean Corpuscular HGB Conc 32.8 g/dl (31.0-35.0); Mean Corpuscular Hemoglobin 28.5 pg (27.0-33.0); Mean Corpuscular Volume 86.9 fL (80.0-98.0); Monocytes Absolute Auto 0.4 X10*3/uL (0.1-1.2); Monocytes Percent Auto 7.2 % (2-11); Neutrophils Absolute Auto 3.4 x10*3/uL (2.0-8.3); Neutrophils Percent Auto 61.7 % (45-73); Platelet Count 213 X10*3/uL (160-400); Red Blood Count 4.35 X10*6/uL (4.20-5.50); Red Cell Distribution Width 14.3 % (11.0-16.0); White Blood Count 5.6 X10*3/uL (4.8-10.8)
[2025-02-16 12:06] LABS: Creatinine Urine 120.59 mg/dL; Microalbum/Creatinine Ratio Ur 4.9 ug/mg cr (<30)
[2025-02-16 12:21] LABS: Alanine Aminotransferase 32 U/L (0-31); Albumin Level 4.4 g/dL (3.5-5.0); Alkaline Phosphatase 44 U/L (39-117); Anion Gap 12 (12-20); Aspartate Amino Transferase 35 U/L (5-31); Bilirubin Total 0.4 mg/dL (0.0-1.0); Blood Urea Nitrogen 19 mg/dL (9-16); Carbon Dioxide 27 mmol/L (22-29); Chloride 106 mmol/L (96-108); Cholesterol 168 mg/dL (<200); Estimated Glomerular Filt Rate 52; Glucose Fasting 114 mg/dL (60-99); HDL Cholesterol 47 mg/dL (>40); LDL Cholesterol Calculated 94 mg/dL (<100); Potassium 4.2 mmol/L (3.3-5.1); Sodium 141 mmol/L (135-145); Total Protein 6.9 g/dL (6.5-8.0); Triglycerides 136 mg/dL (<150)
[2025-02-16 12:22] LABS: TSH reflex Free T4 1.01 uIU/mL (0.32-4.0)
== END 2025-02-16 08:55 | disposition home or self-care (01) ==
LOC: HO.WFDLDS 08:54
PROVIDERS: Visit Provider Family Medicine
DX: Z00.00 Encounter for general adult medical examination without abnormal findings (principal); I10 Essential (primary) hypertension
CPT/HCPCS: 36415; 80053; 80061; 81001; 82043; 82570; 84443; 85025

== ENCOUNTER 2025-03-14 08:53 | Outpatient (AMB) | payer MEDICARE, SELFPAY ==
--- NOTE | 2025-03-14 09:05 | MHC.PC.OV ---
Vital Signs 03/14/25 09:12 Height 5 ft 4 in Weight 162 lb BMI 27.8 BP 100/60 Blood Pressure Location Lt brachial Position Sitting Respiration 14 Pulse 74 Pulse Source Pulse Oximeter Temp 96 F L Temp Source Oral Pulse Oximetry (%) 96 Oxygen Delivery Method Room Air Intake Visit Reasons: CPE with f/u labs and health maint Intake Note: Patient is scheduled for CPE Test Pilot Required: No Is last menstrual period known: No Post menopausal: Yes Patient : No Allergies No Known Allergies Allergy (Verified 03/14/25 09:08) Medication List - Last Reconciled 03/14/25 by Kanu Hinkle MD amlodipine 10 mg PO DAILY 90 days atorvastatin 30 mg PO DAILY bisacodyl (Dulcolax (bisacodyl)) 20 mg (4 x 5 mg) PO ONCE 1 day blood sugar diagnostic ([employer] Verio test strips) As directed blood-glucose meter ([employer] Verio Flex Meter) To test blood sugar daily As directed, 999 days chlorthalidone 25 mg PO DAILY lancets ([employer] UltraSoft Lancets) Test blood sugars daily As directed, 90 days lisinopril 40 mg PO DAILY 90 days metformin 500 mg PO DAILY 90 days polyethylene glycol 3350 (Miralax) 17 grams PO DAILY 1 day Tobacco use date assessed: 03/14/25 Fall risk assessment: No Falls in past year Last assessed Fall Risk: 03/14/25 Dental Screening Dental Screen Date: 03/14/25 Did you have a dental visit in the last 12 months?: Yes Did you have a dental problem in the last 6 months where you did not have access to dental care?: No Was dental information given to patient?: Patient has dentist HPI CPE with f/u labs and health maint HPI Details 69 y/o female presents for a CPE with f/u labs and health maintenance. Labs drawn 02/16/25. Reviewed labs with pt. Fasting glucose 114. Last A1c 02/22/24 6.4%. She is on metformin 500mg daily. Elevated liver enzymes - AST 35, ALT 32. Triglycerides 136. TC 168. LDL 94. HDL 47. Estimated GFR 52. BP today 100/60, 74p. She is on lisinopril 40mg, amlodipine 10mg, chlorthalidone 25mg daily. HPI Comments History of Present Illness Details Documentation assistance for Kanu Hinkle MD, was provided by Harris Núñez,? Steam Heating Installer on 03/14/2025 at 9:22 AM EST. I, Dr. Hinkle, have read, observed, and verified documentation. ?? [facility] Medical History Kidney stones Colon polyps Diverticulosis HLD (hyperlipidemia) HTN (hypertension) Diabetes Surgical History Hx of colonoscopy Family History Father HTN (hypertension) CVD (cardiovascular disease) Mother No problems noted. Sister No problems noted. Sister No problems noted. Son No problems noted. Son No problems noted. Son No problems noted. Son No problems noted. Daughter No problems noted. Daughter No problems noted. 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 1. Little interest or pleasure in doing things: not at all 2. Feeling down, depressed, or hopeless: not at all 3. Trouble falling or staying asleep, or sleeping too much: not at all 4. Feeling tired or having little energy: nearly every day 5. Poor appetite or overeating: not at all 6. Feeling bad about yourself - or that you are a failure or have let yourself or your family down: not at all 7. Trouble concentrating on things, such as reading the newspaper or watching television: not at all 8. Moving or speaking so slowly that other people could have noticed. Or the opposite - being so fidgety or restless that you have been moving around a lot more than usual: not at all 9. Thoughts that you would be better off or of hurting yourself in some way: not at all Total score: 3 Depression Screening Interpretation: Negative Depression Screening Done: Yes 48335 - PHQ-9 Billing: Yes Source: Developed by Drs. Prieto Chan, Monie Farooq, Noe Bermudez and colleagues, with an educational quyen from [employer]. Thrive Questionnaire Date Thrive assessed: 03/14/25 I am a: Patient What is your living situation today?: I choose not to answer this question Within the past 12 months, did the food you bought not last and you didn't have the money to get more?: I choose not to answer this question Within the past 12 months, did you worry whether your food would run out before you got money to buy more?: I choose not to answer this question Do you have trouble paying for medicines?: I choose not to answer this question Do you have trouble getting transportation to medical appointments?: I choose not to answer this question Do you have trouble paying your heating and electricity bill?: I choose not to answer this question Do you have trouble taking care of your child, family member or friend?: I choose not to answer this question Do you have trouble with day-to-day activities such as bathing, preparing meals, shopping, managing finances, etc.?: I choose not to answer this question Are you currently unemployed and looking for a job?: I choose not to answer this question Are you interested in more education?: I choose not to answer this question THRIVE Score: 0 AUDIT C Alcohol Use Questionnaire (AUDIT-C) 1. How often do you have a drink containing alcohol?: Monthly or less 2. How many drinks containing alcohol do you have on a typical day when you are drinking?: 1 or 2 3. How often do you have six or more drinks on one occasion?: Never Total Score: 1 Score Reviewed/Action Taken: Yes KENNEY-7 AMB Questionnaire KENNEY-7 Date KENNEY - 7 assessed: 03/14/25 Feeling nervous, anxious, or on edge: 0 = Not at all Not being able to stop or control worryin = Not at all Worrying too much about different things: 0 = Not at all Trouble relaxin = Not at all Being so restless that it is hard to sit still: 0 = Not at all Becoming easily annoyed or irritable: 0 = Not at all Feeling afraid as if something awful might happen: 0 = Not at all Total KENNEY-7 score (0-4 normal; 5-9 mild; 10-14 moderate; 15-21 severe): 0 Source: Developed by Drs. Prieto Chan, Monie Farooq, Noe Bermudez and colleagues, with an educational quyen from [employer]. KENNEY-7 Assessment Billing KENNEY-7 Assessment Tool: KENNEY-7 Assessment 72935 Review of Systems Const Denies chills, Denies fatigue, Denies fever(s), Denies headache(s) and Denies weakness Eyes Denies change in vision ENT Denies dizziness, Denies headache(s), Denies hearing loss, Denies nasal congestion, Denies sinus pain, Denies sinus pressure and Denies sore throat Card Denies chest pain, Denies lightheadedness, Denies dyspnea and Denies other (palpitations) Resp Denies cough, Denies dyspnea and Denies wheezing GI Denies abdominal pain, Denies melena, Denies hematochezia, Denies change in bowel habits, Denies dyspepsia and Denies nausea Denies hematuria and Denies dysuria Musc Denies abnormal gait, Denies myalgias, Denies arthralgias, Denies numbness and Denies tingling Skin/Breast Denies rash, Denies unusual bruising and Denies wounds Neuro Denies abnormal gait, Denies dizziness, Denies headache(s), Denies memory loss, Denies numbness, Denies Sensory deficit (Neuro), Denies tingling and Denies weakness Psych Denies anxiety, Denies depression and Denies memory loss Endo Denies cold intolerance, Denies fatigue, Denies heat intolerance, Denies polydipsia and Denies polyuria Alexander/Lymph Denies easy bleeding and Denies easy bruising Aller/Immun Denies wheezing Physical exam (Primary Care) Vital Signs: Last Vital Signs Temp 96 F L 03/14/25 09:12 Pulse 74 03/14/25 09:12 Resp 14 03/14/25 09:12 BP 100/60 03/14/25 09:12 Pulse Ox 96 03/14/25 09:12 Oxygen Delivery Method Room Air 03/14/25 09:12 BMI result Body Mass Index 27.8 Tobacco/Smoking Status: Tobacco use Status Tobacco use date assessed 03/14/25 03/14/25 09:15 Patient Tobacco Use Status Never used Tobacco 03/14/25 09:07 e-Cigarette/Vaping Use Never Used 03/14/25 09:07 PHQ-9: PHQ-9 Score PHQ-9: Total score 3 03/14/25 09:22 Depression Screening Interpretation: Negative Thrive Assessment: Date of Thrive Assessment Date Thrive assessed 03/14/25 03/14/25 09:15 Const General: no acute distress, well developed, alert and awake Nutritional Appearance: well nourished Orientation/consciousness: patient oriented x3 HENMT Head: Yes normocephalic and Yes atraumatic Ears: hearing grossly normal bilaterally and TM's normal bilaterally General nose exam: Normal external nose present and Normal nares present Mouth: Normal oral and palatal mucosa present and moist mucous membranes Teeth and gingiva: dentition normal Throat: Yes posterior oropharynx normal Eyes General: appearance normal, both eyes and all related structures Pupils: Equal, round and reactive pupils present and Pupil accommodation reflex normal EOM: EOMs intact bilaterally Neck Neck: Yes normal visual inspection, Yes no lymphadenopathy and Yes trachea midline Thyroid: Thyroid normal Carotids: no bruits Lymphatic: no lymphadenopathy noted Chest Chest palpation & inspection: normal inspection of the chest Resp Effort & Inspection: normal respiratory effort Auscultation: clear to auscultation bilaterally Cardio Rate: regular rate Rhythm: regular rhythm Heart sounds: S1 normal heart sound present, S2 normal heart sound present, no gallops, no murmurs and no rubs Bruits: no abdominal aortic bruits and no carotid bruits GI Palpation (GI): No Abdominal aortic bruit present, Soft to palpation, nontender, No hepatosplenomegaly present and No Rebound tenderness present Auscultation: normal bowel sounds General: Yes no CVA tenderness Back/Spine/Pelvis Back: no CVA tenderness Cervical Spine: cervical ROM normal and No Cervical spine tenderness Thoracic/Lumbar Spine: thoraco-lumbar ROM normal, No pain with thoraco-lumbar ROM, No thoracic spinal tenderness and No lumbar spinal tenderness Skin Lesions: no lesions Rashes: no rashes Trauma: no lacerations or abrasions Wounds: no wounds Nails: normal Neuro General: patient oriented x3 Cranial nerves: Yes Equal, round and reactive pupils present Cognition (Neuro): normal cognition Gait exam (Neuro): Normal gait present Motor exam (neuro): 5/5 motor strength present throughout Sensory Exam: No Sensory deficit (Neuro) Deep tendon reflexes (DTR's): Right patellar reflex intensity grade: 2+ and Left patellar reflex intensity grade: 2+ Extrem General: Yes normal to inspection and No edema Psych Appearance: grossly normal Affect: normal affect Attitude: cooperative Thought process: Normal thought process present Coding Level of Care Code Est Pt Level 3 (77962) Est Pt Prev Care >65y(96055) Diagnoses Adult general medical exam Z00.00 Diabetes type 2, controlled E11.9 Essential hypertension I10 Hyperlipidemia E78.5 Mild renal insufficiency N28.9 Elevated liver enzymes R74.8 Screening for colon cancer Z12.11 Additional Codes KENNEY-7 Assessment Billing - KENNEY-7 Assessment Tool: KENNEY-7 Assessment 31968 ([id number]) PHQ-9 - 73758 - PHQ-9 Billing: Yes ([id number]) Assessment & Plan Assessment & Plan (1) Adult general medical exam: Code(s): Z00.00 - Encounter for general adult medical examination without abnormal findings Category: Medical Plan: 69-year-old?female?presents?for?complete?physical?exam Encouraged?healthy?diet?with?active?lifestyle?and?plenty?of?exercise (2) Diabetes type 2, controlled: Code(s): E11.9 - Type 2 diabetes mellitus without complications Category: Medical Plan: A1c?6.3%.??Good?control.??Goal?is?less?than?7% Continue?current?medication (3) Essential hypertension: Code(s): I10 - Essential (primary) hypertension Category: Medical Plan: Blood?pressure?is?well?controlled.??Goal?is?less?than?140/90 Continue?current?medications If?blood?pressure?remains?lower?at?next?visit?would?consider?decreasing?antihypertensive?medication (4) Hyperlipidemia: Code(s): E78.5 - Hyperlipidemia, unspecified Category: Medical Plan: Lipids?are?well?controlled?and?patient?wants?to?try?decreasing?atorvastatin Will?decrease?atorvastatin?from?30?mg?daily?to?20?mg?daily Encouraged?diet?lower?in?saturated?fats?and?cholesterol (5) Mild renal insufficiency: Code(s): N28.9 - Disorder of kidney and ureter, unspecified Category: Medical Plan: Mild?stable?renal?insufficiency. Maintain?good?hydration If?this?changes?and?worsens?below?her?baseline, would?consider?decreasing?chlorthalidone (6) Elevated liver enzymes: Code(s): R74.8 - Abnormal levels of other serum enzymes Category: Medical Plan: Mildly?elevated?liver?enzymes Hydrate?well Will?recheck?these?with?next?blood?draw If?they?continue?to?rise?or?still?elevated?would?check?ultrasound (7) Screening for colon cancer: Code(s): Z12.11 - Encounter for screening for malignant neoplasm of colon Category: Medical Plan: She?has?an?upcoming?colonoscopy?and?we?can?review?results?if?available?at?next?visit Orders: Orders Lipid Panel Today E78.6 - Lipoprotein deficiency, Z00.00 - Encounter for general adult medical examination without abnormal findings Comprehensive [place]. Panel Fast Today R74.01 - Elevation of levels of liver transaminase levels, Z00.00 - Encounter for general adult medical examination without abnormal findings Medications: New atorvastatin 20 mg PO DAILY 90 days 90 tabs 3RF
[2025-03-14 09:12] VITALS: BP 100/60; PULSE 74; RESP 14; TEMP 35.5; O2SAT 96; BMI 27.8
== END 2025-03-14 09:59 | disposition home or self-care (01) ==
LOC: HO.HMCFM 08:54
PROVIDERS: PCP Family Medicine; Visit Provider Family Medicine
DX: Z00.00 Encounter for general adult medical examination without abnormal findings (principal); E11.69 Type 2 diabetes mellitus with other specified complication; I10 Essential (primary) hypertension; E78.5 Hyperlipidemia, unspecified; N28.9 Disorder of kidney and ureter, unspecified; R74.8 Abnormal levels of other serum enzymes; Z12.11 Encounter for screening for malignant neoplasm of colon

== ENCOUNTER → 2025-03-14 08:53 | Outpatient (BNVA) | payer MEDICARE, SELFPAY | PROVIDERS: PCP Family Medicine; Visit Provider Family Medicine | DX: Z00.00 Encounter for general adult medical examination without abnormal findings (principal); E11.9 Type 2 diabetes mellitus without complications; I10 Essential (primary) hypertension; E78.5 Hyperlipidemia, unspecified; N28.9 Disorder of kidney and ureter, unspecified; R74.8 Abnormal levels of other serum enzymes; E78.6 Lipoprotein deficiency; R74.01 Elevation of levels of liver transaminase levels; Z79.84 Long term (current) use of oral hypoglycemic drugs | CPT/HCPCS: 83036; 96127; 99212; 99397 ==

== ENCOUNTER 2025-05-08 09:34 | Outpatient (REF) | payer MEDICARE, SELFPAY ==
--- OUTSIDE RECORDS SUMMARY | 2025-05-02 23:59 | XMS_ITS | Continuity of Care Document ---
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 Refills 0, Maintenance, 09/26/21 2:35:00 PM EST, Inhaler, Route to Pharmacy Electronically, [id number], [facility], 160, cm, 09/26/21 9:28:00 EST, Height, 80, kg, 09/20/21 23:34:00 EST, Dry Weight Start Date: 09/26/21 Status: Ordered Quantity: 8.5 Unit: g Repeat number: 1 amLODIPine 10 mg oral tablet 1 tablet = 10 mg, By Mouth, Daily, # 30 tablet, 0 Refills, Maintenance, 09/20/21 9:06:00 PM EST, Tablet, Partial fill upon patient request if the prescription is for a schedule II opioid drug. Start Date: 09/20/21 Status: Ordered Quantity: 30.0 Unit: tablet Repeat number: 1 atorvastatin 20 mg oral tablet 1.5 tablet = 30 mg, By Mouth, Daily, # 30 tablet, 0 Refills, Maintenance, 05/14/22 7:32:00 AM EDT, Tablet, Partial fill upon patient request if the prescription is for a schedule II opioid drug. Start Date: 05/14/22 Status: Ordered Quantity: 30.0 Unit: tablet Repeat number: 1 lisinopril 40 mg oral tablet 1 tablet = 40 mg, By Mouth, Daily, # 30 tablet, 0 Refills, Maintenance, 09/20/21 9:06:00 PM EST, Tablet, Partial fill upon patient request if the prescription is for a schedule II opioid drug. Start Date: 09/20/21 Status: Ordered Quantity: 30.0 Unit: tablet Repeat number: 1 metFORMIN 500 mg oral tablet 1 tablet = 500 mg, By Mouth, Daily, with meals, # 30 tablet, 0 Refills, Maintenance, 09/20/21 9:06:00 PM EST, Tablet, Partial fill upon patient request if the prescription is for a schedule II opioiddrug. Start Date: 09/20/21 Status: Ordered Quantity: 30.0 Unit: tablet Repeat number: 1 Results Radiology Reports * Exam Date Time Procedure Performing Provider Status 04/25/25 10:[address] Abd/Pelvis W/O Contrast Modified Notes: (CT Abd/Pelvis W/O Contrast) Reason For Exam: renal stone RESULT: CT Abd/Pelvis W/O Contrast CT Abd/Pelvis W/O Contrast [facility] [address] [place] [address], [id number]. INDICATION: Follow-up urolithiasis. TECHNIQUE: Spiral CT through the abdomen and pelvis without IV contrast formatted in 3 planes. Thisstudy was performed without oral contrast. Weight- based protocol using automatic tube modulation was used to optimize exposure parameters. COMPARISON: 10/06/2023. FINDINGS: Visualized Chest: COPD changes. Liver: Partially included, unremarkable. Gallbladder: Single peripherally calcified gallstone measuring just under 2 cm in maximum dimensionis again noted. Bile ducts: No biliary ductal dilation. Spleen: Partially included, unremarkable. Pancreas: Mildly atrophic. Adrenal glands: Normal-appearing. Kidneys and ureters: Multiple small bilateral renal calculi are again noted without evidence of ureteral calculi or hydroureteronephrosis. Small cyst lower pole right kidney measuring just under 2.5 cm maximal dimension. Bladder: Under distended. Reproductive organs: Mild myomatous changes. Stomach, small bowel, and large bowel: No evidence of obstruction or inflammation. Small sliding hiatal hernia. Included colon is stool-filled. Appendix: Normal. Peritoneum and retroperitoneum: No ascites or pneumoperitoneum. No omental or mesenteric lesions. Lymph nodes: No enlarged lymph nodes. Blood vessels: Mild vascular calcifications but no aneurysm. Abdominal and pelvic wall: Small fat-containing umbilical hernia. Bones: Diffusely demineralized, no acute abnormality comment no suspicious osseous lesions. Moderate facet degenerative changes lower lumbar spine with grade 1 anterolisthesis of L4 on L5. IMPRESSION: 1. Bilateral nephrolithiasis, overall stone burden appears largely unchanged. 2. Cholelithiasis. 3. Small sliding hiatal hernia. 4. Mild myomatous changes. WSN: [id number] Ordering Physician: Capo Mcgraw Dictated By: Akbar Mcnulty MD Dictated Date/Time: 04/26/25 11:41 a Reviewed By: Akbar Mcnulty MD Signed By: Akbar Mcnulty MD Signed Date/Time: 04/26/25 11:41 am Transcribed By: MARIA DEL CARMEN Transcribed Date/Time: 04/26/25 10:57 am Patient Care team information Care Team Personnel Name: Kanu Hinkle MD Position: [facility] Outreach Member Role: PCP Address: [address] [place] [address] Telecom: Name: Miguel Bedolla RN Position: S RN Member Role: Primary Care Nurse Name: Hollie Lynn RN Position: S RN Member Role: Primary Care Nurse Care Team Related Persons Name: COLUMBA GARNER Insurance Providers Guarantor name: CARLA GARNER Health Plan Information #: 1 Payer: [facility] Payer Identifier: NA Member Number: [id number] Group Number: [id number] Subscriber Identifier: [id number] Relationship to Subscriber: self Coverage Type: Medicare HMO Coverage Verification Date: Telecom: Address:
[2025-05-08 12:11] LABS: Alanine Aminotransferase 24 U/L (0-31); Albumin Level 4.7 g/dL (3.5-5.0); Alkaline Phosphatase 44 U/L (39-117); Anion Gap 10 (12-20); Aspartate Amino Transferase 27 U/L (5-31); Blood Urea Nitrogen 17 mg/dL (9-16); Calcium 10.1 mg/dL (8.4-10.2); Carbon Dioxide 29 mmol/L (22-29); Chloride 104 mmol/L (96-108); Cholesterol 169 mg/dL (<200); Estimated Glomerular Filt Rate 48; HDL Cholesterol 48 mg/dL (>40); Potassium 4.2 mmol/L (3.3-5.1); Sodium 139 mmol/L (135-145); Total Protein 7.3 g/dL (6.5-8.0); Triglycerides 148 mg/dL (<150)
[2025-05-08 14:18] LABS: Appearance Urine Clear; Glucose Urine UA Negative (Negative); PH 6.5 (5.0-9.0); Specific Gravity - Urine 1.010 (1.005-1.025); UMIC TRIGGER UA YES
== END 2025-05-08 09:35 | disposition home or self-care (01) ==
LOC: HO.WFDLDS 09:34
PROVIDERS: Visit Provider Family Medicine
DX: Z00.00 Encounter for general adult medical examination without abnormal findings (principal); R74.01 Elevation of levels of liver transaminase levels; E78.6 Lipoprotein deficiency
CPT/HCPCS: 36415; 80053; 80061; 81001; 81003

== ENCOUNTER 2025-05-16 10:37 | Outpatient (AMB) | payer MEDICARE, SELFPAY ==
--- NOTE | 2025-05-16 10:52 | MHC.PC.OV ---
Vital Signs 05/16/25 10:55 Height 5 ft 4 in Weight 154 lb 8 oz BMI 26.5 BP 112/52 L Blood Pressure Location Lt brachial Position Sitting Pulse 73 Pulse Source Pulse Oximeter Temp 96.8 F Temp Source Temporal Artery Scan Pulse Oximetry (%) 99 Oxygen Delivery Method Room Air Intake Visit Reasons: f/u liver enzymes, labs Intake Note: Follow up on labs and liver enzymes. Director Of Casework Services Required: No Allergies No Known Allergies Allergy (Verified 05/16/25 10:53) Medication List - Last Reconciled 05/16/25 by Kanu Hinkle MD amlodipine 10 mg PO DAILY 90 days atorvastatin 20 mg PO DAILY 90 days bisacodyl (Dulcolax (bisacodyl)) 20 mg (4 x 5 mg) PO ONCE 1 day blood sugar diagnostic ([employer] To[employer] Verio test strips) As directed blood-glucose meter ([employer] Verio Flex Meter) To test blood sugar daily As directed, 999 days lancets (AsterionTouch UltraSoft Lancets) Test blood sugars daily As directed, 90 days lisinopril 40 mg PO DAILY 90 days metformin 500 mg PO DAILY 90 days polyethylene glycol 3350 (Miralax) 17 grams PO DAILY 1 day Tobacco use date assessed: 05/16/25 Fall risk assessment: No Falls in past year Last assessed Fall Risk: 05/16/25 Dental Screening Dental Screen Date: 05/16/25 Did you have a dental visit in the last 12 months?: Yes Did you have a dental problem in the last 6 months where you did not have access to dental care?: No Was dental information given to patient?: Patient has dentist HPI f/u liver enzymes, labs HPI Details 70 y/o female presents to f/u liver enzymes, labs. Labs drawn 05/08/25. Reviewed labs with pt. Fasting glucose 104. Last A1c 03/14/25 6.5%. Liver enzymes improved. Triglycerides 148. TC 169. LDL 92. HDL 48. She is on artovastatin 20mg daily. BP today 112/52, 73p. She notes she checks blood pressure at home and has been more or less the same. HPI Comments History of Present Illness Details Documentation assistance for Kanu Hinkle MD, was provided by Harris Núñez, Biological Chemist on 05/16/2025 at 11:46 AM EST. I, Dr. Hinkle, have read, observed, and verified documentation. ? PFSH Medical History Kidney stones Colon polyps Diverticulosis HLD (hyperlipidemia) HTN (hypertension) Diabetes Surgical History Hx of colonoscopy Family History Father HTN (hypertension) CVD (cardiovascular disease) Mother No problems noted. Sister No problems noted. Sister No problems noted. Son No problems noted. Son No problems noted. Son No problems noted. Son No problems noted. Daughter No problems noted. Daughter No problems noted. 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 1. Little interest or pleasure in doing things: not at all 2. Feeling down, depressed, or hopeless: not at all 3. Trouble falling or staying asleep, or sleeping too much: not at all 4. Feeling tired or having little energy: not at all 5. Poor appetite or overeating: not at all 6. Feeling bad about yourself - or that you are a failure or have let yourself or your family down: not at all 7. Trouble concentrating on things, such as reading the newspaper or watching television: not at all 8. Moving or speaking so slowly that other people could have noticed. Or the opposite - being so fidgety or restless that you have been moving around a lot more than usual: not at all 9. Thoughts that you would be better off or of hurting yourself in some way: not at all Total score: 0 Depression Screening Interpretation: Negative Depression Screening Done: Yes 93756 - PHQ-9 Billing: Yes Source: Developed by Drs. Prieto Chan, MonieNoe Sánchez and colleagues, with an educational quyen from [employer]. Thrive Questionnaire Date Thrive assessed: 05/16/25 I am a: Patient What is your living situation today?: I choose not to answer this question Within the past 12 months, did the food you bought not last and you didn't have the money to get more?: I choose not to answer this question Within the past 12 months, did you worry whether your food would run out before you got money to buy more?: I choose not to answer this question Do you have trouble paying for medicines?: I choose not to answer this question Do you have trouble getting transportation to medical appointments?: I choose not to answer this question Do you have trouble paying your heating and electricity bill?: I choose not to answer this question Do you have trouble taking care of your child, family member or friend?: I choose not to answer this question Do you have trouble with day-to-day activities such as bathing, preparing meals, shopping, managing finances, etc.?: I choose not to answer this question Are you currently unemployed and looking for a job?: I choose not to answer this question Are you interested in more education?: I choose not to answer this question Please select the resources that you would like help with: None Currently or been in a relationship where the following occur: No concerns reported THRIVE Score: 0 KENNEY-7 AMB Questionnaire KENNEY-7 Date KENNEY - 7 assessed: 05/16/25 Feeling nervous, anxious, or on edge: 0 = Not at all Not being able to stop or control worryin = Not at all Worrying too much about different things: 0 = Not at all Trouble relaxin = Not at all Being so restless that it is hard to sit still: 0 = Not at all Becoming easily annoyed or irritable: 0 = Not at all Feeling afraid as if something awful might happen: 0 = Not at all Total KENNEY-7 score (0-4 normal; 5-9 mild; 10-14 moderate; 15-21 severe): 0 Source: Developed by Drs. Prieto Chan, Noe Rodriguez and colleagues, with an educational quyen from [employer]. KENNEY-7 Assessment Billing KENNEY-7 Assessment Tool: KENNEY-7 Assessment 69084 Review of Systems Const Denies chills, Denies fatigue, Denies fever(s), Denies headache(s) and Denies weakness ENT Denies dizziness and Denies headache(s) Card Denies chest pain, Denies lightheadedness, Denies dyspnea and Denies other (Palpitations) Resp Denies cough, Denies dyspnea, Denies wheezing and Denies other ( shortness of breath) Musc Denies numbness and Denies tingling Neuro Denies dizziness, Denies headache(s), Denies numbness, Denies tingling, Denies paresthesias and Denies weakness Psych Denies anxiety and Denies depression Endo Denies fatigue Aller/Immun Denies wheezing Physical exam (Primary Care) Vital Signs: Last Vital Signs Temp 96.8 F 05/16/25 10:55 Pulse 73 05/16/25 10:55 BP 112/52 L 05/16/25 10:55 Pulse Ox 99 05/16/25 10:55 Oxygen Delivery Method Room Air 05/16/25 10:55 BMI result Body Mass Index 26.5 Tobacco/Smoking Status: Tobacco use Status Tobacco use date assessed 05/16/25 05/16/25 10:56 Patient Tobacco Use Status Never used Tobacco 05/16/25 10:56 e-Cigarette/Vaping Use Never Used 05/16/25 10:56 PHQ-9: PHQ-9 Score PHQ-9: Total score 0 05/16/25 11:33 Depression Screening Interpretation: Negative Thrive Assessment: Date of Thrive Assessment Date Thrive assessed 05/16/25 05/16/25 10:56 Currently or been in a relationship where the following occur: No concerns reported Const General: no acute distress and well developed Nutritional Appearance: well nourished Orientation/consciousness: patient oriented x3 [facility] Head: Yes normocephalic and Yes atraumatic Eyes General: appearance normal, both eyes and all related structures Pupils: Equal, round and reactive pupils present EOM: EOMs intact bilaterally Resp Effort & Inspection: normal respiratory effort Auscultation: clear to auscultation bilaterally Cardio Rate: regular rate Rhythm: regular rhythm Heart sounds: S1 normal heart sound present, S2 normal heart sound present, no gallops, no murmurs and no rubs Neuro General: patient oriented x3 and gait normal Cranial nerves: Yes Equal, round and reactive pupils present Psych Affect: normal affect Coding Level of Care Code Est Pt Level 4 (51680) Diagnoses Essential hypertension I10 Hyperlipidemia E78.5 Elevated liver enzymes R74.8 Mild renal insufficiency N28.9 Additional Codes KENNEY-7 Assessment Billing - KENNEY-7 Assessment Tool: KENNEY-7 Assessment 97233 ([id number]) PHQ-9 - 77176 - PHQ-9 Billing: Yes ([id number]) Assessment & Plan Assessment & Plan (1) Essential hypertension: Code(s): I10 - Essential (primary) hypertension Category: Medical Plan: Blood pressure remains controlled. Goal is less than 140/90 However, GFR continues to declines lately on chlorthalidone as well as her medications. Will have her discontinue chlorthalidone She can check her blood pressures at home she will let me know if SBP greater than 140 consistently. (2) Hyperlipidemia: Code(s): E78.5 - Hyperlipidemia, unspecified Category: Medical Plan: Atorvastatin was decreased but patient has also lost weight. Cholesterol remains well controlled. Continue atorvastatin as currently prescribed (3) Elevated liver enzymes: Code(s): R74.8 - Abnormal levels of other serum enzymes Category: Medical Plan: Liver enzymes back in normal range Patient has lost about 15 lb. Had also decreased atorvastatin though I do not suspect this is the more likely cause Will continue to monitor periodically (4) Mild renal insufficiency: Code(s): N28.9 - Disorder of kidney and ureter, unspecified Category: Medical Plan: As above, GFR has declined She is on lisinopril and also chlorthalidone Will have her stop chlorthalidone. She can watch her blood pressures and let know if SBP greater than 140 She will recheck her lab work prior to her next visit and we will review creatinine and GFR. She will also discuss stopping chlorthalidone with her urologist - patient is being followed for renal stones. Orders: Orders Basic Metabolic Panel Today N28.9 - Disorder of kidney and ureter, unspecified, Z00.00 - Encounter for general adult medical examination without abnormal findings
[2025-05-16 10:55] VITALS: BP 112/52; PULSE 73; TEMP 36; O2SAT 99; BMI 26.5
== END 2025-05-16 11:47 | disposition home or self-care (01) ==
LOC: HO.HMCFM 10:38
PROVIDERS: PCP Family Medicine; Visit Provider Family Medicine
DX: I10 Essential (primary) hypertension (principal); E78.5 Hyperlipidemia, unspecified; R74.8 Abnormal levels of other serum enzymes; N28.9 Disorder of kidney and ureter, unspecified

== ENCOUNTER → 2025-05-16 10:37 | Outpatient (BNVA) | payer MEDICARE, SELFPAY | PROVIDERS: PCP Family Medicine; Visit Provider Family Medicine | DX: I10 Essential (primary) hypertension (principal); E78.5 Hyperlipidemia, unspecified; R74.8 Abnormal levels of other serum enzymes; N28.9 Disorder of kidney and ureter, unspecified | CPT/HCPCS: 96127; 99212 ==

== ENCOUNTER 2025-05-19 10:26 | Day surgery (SDC) | payer MEDICARE, SELFPAY ==
[2025-05-17 13:31] VITALS: BMI 29.0
--- NOTE | 2025-05-18 10:20 | HO.ANESPROP2 ---
Documented by User: Sulema Redd NP 05/18/25 10:21 HPI - Anesthesia Eval Consult details Narrative: 70yo F for Colonoscopy PMFSH Active Problems Active Problems: All Active Problems Elevated liver enzymes (Acute) Mild renal insufficiency (Acute) Cholelithiasis (Acute) Neoplasm of uncertain behavior of skin (Acute) Kidney stones (Acute) Rash (Acute) Hip pain (Acute) Urinary stone (Acute) Screening for osteoporosis (Acute) Breast cancer screening by mammogram (Acute) Screening for colon cancer (Acute) Screening for cervical cancer (Acute) Adult general medical exam (Acute) Microalbuminuria (Acute) History of COVID-19 (Acute) Low HDL (under 40) (Acute) COVID-19 (Acute) Vitamin D deficiency (Acute) Skin lesion (Acute) Numerous skin moles (Acute) Right shoulder pain (Acute) Essential hypertension (Acute) Hyperlipidemia (Acute) Elevated transaminase level (Acute) Diabetes type 2, controlled (Acute) Colon polyps (Acute) Diverticulosis (Acute) Past Medical History Medical History Kidney stones Colon polyps Diverticulosis HLD (hyperlipidemia) HTN (hypertension) Diabetes Family History Family History Father HTN (hypertension) CVD (cardiovascular disease) Mother No problems noted. Sister No problems noted. Sister No problems noted. Son No problems noted. Son No problems noted. Son No problems noted. Son No problems noted. Daughter No problems noted. Daughter No problems noted. 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 Current occupational exposures/hazards: No Cognitive needs: No Hearing needs: No Vision needs: No Meds Allergies Allergy/AdvReac Type Severity Reaction Status Date / Time No Known Allergies Allergy Verified 05/16/25 10:53 Exam Height,Weight and Vital Signs: Height 5 ft 4 in Weight 76.657 kg Assessment and Plan Assessment Anesthesia Assessment: Chart Reviewed Documented by User: Sherry Rodriguez MD 05/19/25 11:30 [facility] Active Problems Active Problems: yAll Active Problems Elevated liver enzymes (Acute) Mild renal insufficiency (Acute) Cholelithiasis (Acute) Neoplasm of uncertain behavior of skin (Acute) Kidney stones (Acute) Rash (Acute) Hip pain (Acute) Urinary stone (Acute) Screening for osteoporosis (Acute) Breast cancer screening by mammogram (Acute) Screening for colon cancer (Acute) Screening for cervical cancer (Acute) Adult general medical exam (Acute) Microalbuminuria (Acute) History of COVID-19 (Acute) Low HDL (under 40) (Acute) COVID-19 (Acute) Vitamin D deficiency (Acute) Skin lesion (Acute) Numerous skin moles (Acute) Right shoulder pain (Acute) Essential hypertension (Acute) Hyperlipidemia (Acute) Elevated transaminase level (Acute) Diabetes type 2, controlled (Acute) Colon polyps (Acute) Diverticulosis (Acute) Past Medical History Medical History Kidney stones Colon polyps Diverticulosis HLD (hyperlipidemia) HTN (hypertension) Diabetes Family History Family History Father HTN (hypertension) CVD (cardiovascular disease) Mother No problems noted. Sister No problems noted. Sister No problems noted. Son No problems noted. Son No problems noted. Son No problems noted. Son No problems noted. Daughter No problems noted. Daughter No problems noted. 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 Current occupational exposures/hazards: No Cognitive needs: No Hearing needs: No Vision needs: No Meds Allergies Allergy/AdvReac Type Severity Reaction Status Date / Time No Known Allergies Allergy Verified 05/16/25 10:53 Exam Airway Mallampati Class: II TM Dist: >3cm Neck ROM: Full Loose/Missing/Broken Teeth: No Heart: RRR Lungs: CTA Assessment and Plan Assessment Anesthesia Assessment: Anesthesia Plan Discussed Final Anesthetic Review History of Problems with Anesthesia: No NPO: Yes ASA Class: II Final Preanesthetic Review: Meds/Allgs Chart Reviewed, Consent Obtained/Reviewed and Anes Risks/Benef Reviewed Patient Risk: Low Procedure Risk: Low Anesthetic Plan Anesthetic Plan: MAC: Disposition: Standard PACU
--- NOTE | 2025-05-19 10:35 | MHC.SHP ---
Pre-Procedural Eval Section A - 24 Hr Update-Section A only Date of Service: 05/19/25 The patient is an INPATIENT: No The patient has been examined within 24 hours of the surgical procedure. The History & Physical has been completed within 30 days and I have reviewed it.: No Section B - Complete if H&P > 30 days Chief Complaint: surveillance for colon polyps Relevant Family History (Specify if Yes): No Relevant Social History: None Present Medications: see Short Stay Collaborative assessment Medical History: Significant History (Kidney stones Colon polyps Diverticulosis HLD (hyperlipidemia) HTN (hypertension) Diabetes) History of Previous Operations: Relevant previous surgery/procedure and date(s) (hx of colonoscopy) Allergies: Allergies Allergy/AdvReac Type Severity Reaction Status Date / Time No Known Allergies Allergy Verified 05/16/25 10:53 Review of Systems Sugical H&P ROS: Negative: Constitution, Cardiovascular, Respiratory and Gastrointestinal Exam Surgical H&P Exam: Normal: Heart, Normal: Lungs, Normal: Extremities and Normal: Abdomen Plan Diagnosis/Plan: Unchanged I have reviewed the history and physical and performed a pertinent physical examination on my patient. No changes have occurred unless specified. Time Spent With Patient Time: Total time managing care of this patient today ____ minutes.
[2025-05-19 10:48] VITALS: BMI 26.5
[2025-05-19 10:50] VITALS: BP 107/73; PULSE 76; RESP 18; TEMP 36.9; O2SAT 99
[2025-05-19 10:59] LABS: Glucose, Whole Blood 103 mg/dL (60-115)
[2025-05-19] MEDS: Lactated Ringers 1,000 ML 100 ML IVCONT (11:08)
[2025-05-19 13:20] VITALS: BP 98/57; PULSE 55; RESP 11; TEMP 36.5; O2SAT 100
--- NOTE | 2025-05-19 13:24 | HO.OPN-COLON ---
Colonoscopy Operative Note Operative Note Date of Service: 05/19/25 Narrative: COLONOSCOPY TILL CECUM WITH BIOPSIES AND SNARE POLYPECTOMY Pre-op diagnosis: Surveillance for colon polyps. Post-op diagnosis:? Colon polyps, Diverticulosis, hemorrhoids Endoscopist:? Swetha Hammer MD Anesthesia:?MAC Consent: Indications for the procedure and potential complications of bleeding, perforation, reaction to medications and missed diagnosis were discussed with the patient and informed consent was obtained. Instrument: Olympus PCF H 190 L variable stiffness pediatric colonoscope Monitoring: Vital signs and clinical assessment, intermittent blood pressure monitoring, continuous EKG monitoring, Pulse oximetry and Carbon Dioxide monitoring were done throughout the procedure. Please see anesthesia flowsheet. Colon withdrawl time was 24 minutes. Procedure: The patient was placed in the left lateral decubitis position and pre-procedure medications were administered. After a digital rectal examination of the ano-rectum, the video colonoscope was inserted into the rectum and advanced through the colon to the cecum. The colonoscope was slowly withdrawn in a retrograde panoramic fashion and the colon mucosa was carefully examined including a retroflexed view of the rectum. Findings and interventions are described below. Procedure Difficulty: Colon was long and tortuous and there was some loop formation Findings: Terminal Ileum: Not evaluated Cecum: Normal Ascending Colon: A 4-5mm sessile polyp in the proximal ascending colon - removed with a cold Transverse Colon: A 3-4 mm sessile polyp - removed with a cold biopsy Descending Colon: Moderate diverticulosis Sigmoid Colon: Two 7-8 mm sessile polyps - removed with a cold snare. Two 3-4 mm sessile polyps - removed with a cold biopsy. Moderate diverticulosis Rectum: A 9-10 mm sessile polyp - removed with a cold snare. Ano-rectum: Moderate internal hemorrhoids Colon preparation: Good after copious irrigation. [place] Bowel Preparation Scale Right colon; 2 Transverse colon: 2 Left colon; 2 (0 = Unprepared colon segment with mucosa not seen due to solid stool that cannot be cleared. 1 = Portion of mucosa of the colon segment seen, but other areas of the colon segment not well seen due to staining, residual stool and/or opaque liquid. 2 = Minor amount of residual staining, small fragments of stool and/or opaque liquid, but mucosa of colon segment seen well. 3 = Entire mucosa of colon segment seen well with no residual staining, small fragments of stool or opaque liquid) Impression and Post Procedure Diagnosis: Colonoscopy Findings: Seven small polyps were removed Moderate diverticulosis seen in the left colon Moderate hemorrhoids on retroflexed exam. Plan: I will send a letter with biopsy results. Repeat Colonoscopy in 3-5 years if polyps are adenomatous and due to history of adenomatous colon polyps. Above findings were reviewed with the patient and relevant handouts were given and the discharge area.
[2025-05-19 13:35] VITALS: BP 106/59; PULSE 64; RESP 16; TEMP 36.2; O2SAT 100
== END 2025-05-19 14:00 | disposition home or self-care (01) ==
PROVIDERS: PCP Family Medicine; Visit Provider Internal Medicine Gastroenterology
PROC: 0DJD8ZZ Inspection of Lower Intestinal Tract, Via Natural or Artificial Opening Endoscopic (ICD-10-PCS; CPT 45378; principal; 2025-05-19 12:00)
DX: Z12.11 Encounter for screening for malignant neoplasm of colon (principal); D12.2 Benign neoplasm of ascending colon; D12.5 Benign neoplasm of sigmoid colon; K62.1 Rectal polyp; K57.30 Diverticulosis of large intestine without perforation or abscess without bleeding; K64.8 Other hemorrhoids; Z86.0101 Personal history of adenomatous and serrated colon polyps; Z83.719 Family history of colon polyps, unspecified; E11.9 Type 2 diabetes mellitus without complications; I10 Essential (primary) hypertension; E78.5 Hyperlipidemia, unspecified; E55.9 Vitamin D deficiency, unspecified; Z79.02 Long term (current) use of antithrombotics/antiplatelets; Z79.84 Long term (current) use of oral hypoglycemic drugs; Z79.899 Other long term (current) drug therapy
CPT/HCPCS: 45385; 45380; 82947; 88305; 88341; 88342; J2003; J2704

== ENCOUNTER → 2025-05-19 10:26 | Outpatient (BNV) | payer MEDICARE, SELFPAY | PROVIDERS: PCP Family Medicine; Visit Provider Internal Medicine Gastroenterology | DX: Z12.11 Encounter for screening for malignant neoplasm of colon (principal); D12.2 Benign neoplasm of ascending colon; D12.3 Benign neoplasm of transverse colon; K57.90 Diverticulosis of intestine, part unspecified, without perforation or abscess without bleeding; K64.8 Other hemorrhoids; D12.5 Benign neoplasm of sigmoid colon; D12.8 Benign neoplasm of rectum | CPT/HCPCS: 45380; 45385 ==

== ENCOUNTER 2025-06-19 09:38 | Outpatient (REF) | payer MEDICARE, SELFPAY ==
[2025-06-19 11:36] LABS: Appearance Urine Clear; Glucose Urine UA Negative (Negative); PH 5.5 (5.0-9.0); Specific Gravity - Urine 1.020 (1.005-1.025); UMIC TRIGGER UA YES
[2025-06-19 11:55] LABS: Anion Gap 12 (12-20); Blood Urea Nitrogen 14 mg/dL (9-16); Calcium 10.0 mg/dL (8.4-10.2); Carbon Dioxide 26 mmol/L (22-29); Chloride 108 mmol/L (96-108); Estimated Glomerular Filt Rate 52; Potassium 4.3 mmol/L (3.3-5.1); Sodium 142 mmol/L (135-145)
== END 2025-06-19 09:39 | disposition home or self-care (01) ==
LOC: HO.WFDLDS 09:38
PROVIDERS: Visit Provider Family Medicine
DX: Z00.00 Encounter for general adult medical examination without abnormal findings (principal); N28.9 Disorder of kidney and ureter, unspecified
CPT/HCPCS: 36415; 80048; 81001

== ENCOUNTER 2025-06-27 15:48 | Outpatient (AMB) | payer MEDICARE, SELFPAY ==
--- NOTE | 2025-06-27 15:52 | A.OFFPC_ITS ---
Vital Signs 06/27/25 15:59 Height 5 ft 4 in Weight 146 lb BMI 25.1 BP 120/72 Blood Pressure Location Rt brachial Position Sitting Respiration 15 Pulse 70 Pulse Source Pulse Oximeter Temp 97.7 F Temp Source Temporal Artery Scan Pulse Oximetry (%) 96 Oxygen Delivery Method Room Air Intake Visit Reasons: f/u HTN, kidney functions Intake Note: Arpita presents in the office today for a follow up to hypertension, kidney function and diabetes. Allergies No Known Allergies Allergy (Verified 06/27/25 15:57) Medication List - Last Reconciled 06/27/25 by Kanu Hinkle MD amlodipine 10 mg PO DAILY 90 days atorvastatin 20 mg PO DAILY 90 days blood sugar diagnostic ([employer] Verio test strips) As directed blood-glucose meter ([employer] Verio Flex Meter) To test blood sugar daily As directed, 999 days lancets ([employer]Touch UltraSoft Lancets) Test blood sugars daily As directed, 90 days lisinopril 40 mg PO DAILY 90 days metformin 500 mg PO DAILY 90 days Tobacco use date assessed: 06/27/25 Dental Screening Dental Screen Date: 06/27/25 Did you have a dental visit in the last 12 months?: Yes Did you have a dental problem in the last 6 months where you did not have access to dental care?: No Was dental information given to patient?: Patient has dentist HPI f/u HTN, kidney functions HPI Details 70 y/o female presents to f/u HTN, mild renal insufficiency. BP today 120/72, 70p. She is on lisinopril 40mg, amlodipine 10mg daily. A1c today 5.8%. She is on metformin 500mg daily. [facility] Medical History Kidney stones Colon polyps Diverticulosis HLD (hyperlipidemia) HTN (hypertension) Diabetes Surgical History Hx of colonoscopy Family History (Updated 06/27/25 @ 15:58 by Sara Seals CMA) Father HTN (hypertension) CVD (cardiovascular disease) Mother No problems noted. Sister No problems noted. Sister No problems noted. Son No problems noted. Son No problems noted. Son No problems noted. Son No problems noted. Daughter No problems noted. Daughter No problems noted. 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 Current occupational exposures/hazards: No Cognitive needs: No Hearing needs: No Vision needs: No Questionnaire Thrive Questionnaire Date Thrive assessed: 03/07/25 I am a: Patient What is your living situation today?: I choose not to answer this question Within the past 12 months, did the food you bought not last and you didn't have the money to get more?: I choose not to answer this question Within the past 12 months, did you worry whether your food would run out before you got money to buy more?: I choose not to answer this question Do you have trouble paying for medicines?: I choose not to answer this question Do you have trouble getting transportation to medical appointments?: I choose not to answer this question Do you have trouble paying your heating and electricity bill?: I choose not to answer this question Do you have trouble taking care of your child, family member or friend?: I choose not to answer this question Do you have trouble with day-to-day activities such as bathing, preparing meals, shopping, managing finances, etc.?: I choose not to answer this question Are you currently unemployed and looking for a job?: I choose not to answer this question Are you interested in more education?: I choose not to answer this question Please select the resources that you would like help with: None Currently or been in a relationship where the following occur: No concerns reported THRIVE Score: 0 KENNEY-7 AMB Questionnaire KENNEY-7 Date KENNEY - 7 assessed: 05/16/25 Source: Developed by Drs. Prieto Chan, Monie Farooq, Noe Bermudez and colleagues, with an educational quyen from [employer]. Review of Systems Const Denies chills, Denies fatigue, Denies fever(s), Denies headache(s) and Denies weakness ENT Denies dizziness and Denies headache(s) Card Denies dyspnea Resp Denies cough, Denies dyspnea, Denies wheezing and Denies other (shortness of breath) Musc Denies numbness and Denies tingling Neuro Denies dizziness, Denies headache(s), Denies numbness, Denies tingling and Denies weakness Psych Denies anxiety and Denies depression Endo Denies fatigue Aller/Immun Denies wheezing Physical exam (Primary Care) Vital Signs: Last Vital Signs Temp 97.7 F 06/27/25 15:59 Pulse 70 06/27/25 15:59 Resp 15 06/27/25 15:59 BP 120/72 06/27/25 15:59 Pulse Ox 96 06/27/25 15:59 Oxygen Delivery Method Room Air 06/27/25 15:59 BMI result Body Mass Index 25.1 Tobacco/Smoking Status: Tobacco use Status Tobacco use date assessed 06/27/25 06/27/25 16:01 Patient Tobacco Use Status Never used Tobacco 06/27/25 15:59 e-Cigarette/Vaping Use Never Used 06/27/25 15:59 Thrive Assessment: Date of Thrive Assessment Date Thrive assessed 03/07/25 06/27/25 15:54 Currently or been in a relationship where the following occur: No concerns reported Const General: well developed; No acute distress Nutritional Appearance: well nourished Orientation/consciousness: patient oriented x3 HENMT Head: Yes normocephalic and Yes atraumatic Eyes General: appearance normal, both eyes and all related structures Pupils: Equal, round and reactive pupils present EOM: EOMs intact bilaterally Resp Effort & Inspection: normal respiratory effort Auscultation: clear to auscultation bilaterally Cardio Rate: regular rate Rhythm: regular rhythm Heart sounds: S1 normal heart sound present, S2 normal heart sound present, no gallops, no murmurs and no rubs Neuro General: patient oriented x3 and gait normal Cranial nerves: Yes Equal, round and reactive pupils present Psych Affect: normal affect Results AMB Hemoglobin A1c AMB Hemoglobin A1c 5.8 % Last Edit by Sara Seals CMA on 06/27/25 16:14 Results Reviewed Results Reviewed: Laboratory Last Values Hgb A1c (Clinic) 5.8 % (4.0-6.0) 06/27/25 15:51 Coding Level of Care Code Est Pt Level 4 (29018) Diagnoses Essential hypertension I10 Mild renal insufficiency N28.9 Diabetes type 2, controlled E11.9 Assessment & Plan Assessment & Plan (1) Essential hypertension: Code(s): I10 - Essential (primary) hypertension Category: Medical Plan: Blood pressure is still well controlled despite discontinuing chlorthalidone. Goal is less than 140/90. Blood pressures have been on the lower side and have come up but still well controlled. Continue lisinopril and amlodipine as prescribed (2) Mild renal insufficiency: Code(s): N28.9 - Disorder of kidney and ureter, unspecified Category: Medical Plan: Discontinue chlorthalidone as her GFR was decreasing GFR now improved though still below 60 Continue to hydrate well. Control blood pressure blood sugar and cholesterol Avoid NSAIDs and salt/sodium Will continue to monitor. If worsening will consider decreasing lisinopril. (3) Diabetes type 2, controlled: Code(s): E11.9 - Type 2 diabetes mellitus without complications Category: Medical Plan: A1c 5.8%. Good control. Goal is less than 7% Continue current medication Continue diabetic diet Orders: Orders Comprehensive [place]. Panel Fast Today N28.9 - Disorder of kidney and ureter, unspecified, Z00.00 - Encounter for general adult medical examination without abnormal findings AMB Hemoglobin A1c Today E11.9 - Type 2 diabetes mellitus without complications UA CC w/rflx Micro + Cult Today N28.9 - Disorder of kidney and ureter, unspecified, Z00.00 - Encounter for general adult medical examination without abnormal findings Microalbumin, Random (w Creat) Today I10 - Essential (primary) hypertension, N28.9 - Disorder of kidney and ureter, unspecified
[2025-06-27 15:59] VITALS: BP 120/72; PULSE 70; RESP 15; TEMP 36.5; O2SAT 96; BMI 25.1
== END 2025-06-27 16:32 | disposition home or self-care (01) ==
LOC: HO.HMCFM 15:48
PROVIDERS: PCP Family Medicine; Visit Provider Family Medicine
DX: I10 Essential (primary) hypertension (principal); N28.9 Disorder of kidney and ureter, unspecified; E11.9 Type 2 diabetes mellitus without complications

== ENCOUNTER → 2025-06-27 15:48 | Outpatient (BNVA) | payer MEDICARE, SELFPAY | PROVIDERS: PCP Family Medicine; Visit Provider Family Medicine | DX: I10 Essential (primary) hypertension (principal); E11.9 Type 2 diabetes mellitus without complications; N28.9 Disorder of kidney and ureter, unspecified | CPT/HCPCS: 83036; 99212 ==

== ENCOUNTER 2025-09-21 10:24 | Outpatient (REF) | payer MEDICARE, SELFPAY ==
[2025-09-21 15:09] LABS: Appearance Urine Cloudy; Glucose Urine UA Negative (Negative); PH 5.5 (5.0-9.0); Specific Gravity - Urine <= 1.005 (1.005-1.025); UMIC TRIGGER UACC YES
[2025-09-21 15:53] LABS: Alanine Aminotransferase 22 U/L (0-31); Albumin Level 4.3 g/dL (3.5-5.0); Alkaline Phosphatase 45 U/L (39-117); Anion Gap 10 (12-20); Aspartate Amino Transferase 30 U/L (5-31); Blood Urea Nitrogen 18 mg/dL (9-16); Calcium 9.3 mg/dL (8.4-10.2); Carbon Dioxide 25 mmol/L (22-29); Chloride 106 mmol/L (96-108); Estimated Glomerular Filt Rate 58; Potassium 4.3 mmol/L (3.3-5.1); Sodium 137 mmol/L (135-145); Total Protein 6.2 g/dL (6.5-8.0)
== END 2025-09-21 10:25 | disposition home or self-care (01) ==
LOC: HO.WFDLDS 10:24
PROVIDERS: Visit Provider Family Medicine
DX: Z00.00 Encounter for general adult medical examination without abnormal findings (principal); I10 Essential (primary) hypertension; N28.9 Disorder of kidney and ureter, unspecified
CPT/HCPCS: 36415; 80053; 81001; 82570

== ENCOUNTER 2025-10-03 09:26 | Outpatient (AMB) | payer MEDICARE, SELFPAY ==
--- NOTE | 2025-10-03 09:30 | A.OFFPC_ITS ---
Vital Signs 10/03/25 09:37 Height 5 ft 4 in Weight 137 lb BMI 23.5 BP 112/64 Blood Pressure Location Rt brachial Position Sitting Respiration 16 Pulse 84 Pulse Source Pulse Oximeter Temp 97.1 F Temp Source Temporal Artery Scan Pulse Oximetry (%) 98 Oxygen Delivery Method Room Air Intake Visit Reasons: f/u HTN, kidney functions Intake Note: Arpita presents in the office today for a follow up to hypertension and her kidney function. Patient needs different diabetic meter and supplies as the one she currently has will not be covered by insurance. Molded Parts Inspector Required: No Is last menstrual period known: No Post menopausal: Yes Patient : No Allergies No Known Allergies Allergy (Verified 10/03/25 09:30) Medication List - Last Reconciled 10/03/25 by Kanu Hinkle MD amlodipine 10 mg PO DAILY 90 days atorvastatin 20 mg PO DAILY 90 days blood sugar diagnostic ([employer] Verio test strips) As directed blood-glucose meter ([employer] Verio Flex Meter) To test blood sugar daily As directed, 999 days lancets ([employer] UltraSoft Lancets) Test blood sugars daily As directed, 90 days lisinopril 40 mg PO DAILY 90 days metformin 250 mg (1/2 x 500 mg) PO DAILY 90 days Tobacco use date assessed: 10/03/25 Dental Screening Dental Screen Date: 10/03/25 Did you have a dental visit in the last 12 months?: Yes Did you have a dental problem in the last 6 months where you did not have access to dental care?: No Was dental information given to patient?: Patient has dentist HPI f/u HTN, kidney functions HPI Details 70 y/o female presents to f/u HTN, kidne y functions, diabetes. BP today 112/64, 84p. She is on amlodipine 10mg, lisinopril 40mg daily. A1c today 5.4%. She is on metformin 500mg daily. Labs drawn 09/21/25. Estimated GFR 58. HPI Comments History of Present Illness Details Documentation assistance for Kanu Hinkle MD, was provided by Harris Núñez,? Claim Manager on 10/03/2025 at 9:51 AM EST. I, Dr. Hinkle, have read, observed, and verified documentation. [facility] Medical History Kidney stones Colon polyps Diverticulosis HLD (hyperlipidemia) HTN (hypertension) Diabetes Surgical History Hx of colonoscopy Family History Father HTN (hypertension) CVD (cardiovascular disease) Mother No problems noted. Sister No problems noted. Sister No problems noted. Son No problems noted. Son No problems noted. Son No problems noted. Son No problems noted. Daughter No problems noted. Daughter No problems noted. 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 Current occupational exposures/hazards: No Cognitive needs: No Hearing needs: No Vision needs: No Questionnaire Thrive Questionnaire Date Thrive assessed: 03/07/25 I am a: Patient What is your living situation today?: I choose not to answer this question Within the past 12 months, did the food you bought not last and you didn't have the money to get more?: I choose not to answer this question Within the past 12 months, did you worry whether your food would run out before you got money to buy more?: I choose not to answer this question Do you have trouble paying for medicines?: I choose not to answer this question Do you have trouble getting transportation to medical appointments?: I choose not to answer this question Do you have trouble paying your heating and electricity bill?: I choose not to answer this question Do you have trouble taking care of your child, family member or friend?: I choose not to answer this question Do you have trouble with day-to-day activities such as bathing, preparing meals, shopping, managing finances, etc.?: I choose not to answer this question Are you currently unemployed and looking for a job?: I choose not to answer this question Are you interested in more education?: I choose not to answer this question Currently or been in a relationship where the following occur: No concerns reported THRIVE Score: 0 KENNEY-7 AMB Questionnaire KENNEY-7 Date KENNEY - 7 assessed: 05/16/25 Source: Developed by Drs. Prieto Chan, Monie Farooq, Noe Bermudez and colleagues, with an educational quyen from [employer]. Review of Systems Const Denies chills, Denies fatigue, Denies fever(s), Denies headache(s) and Denies weakness ENT Denies dizziness and Denies headache(s) Card Denies dyspnea Resp Denies cough, Denies dyspnea, Denies wheezing and Denies other (shortness of breath) Musc Denies numbness and Denies tingling Neuro Denies dizziness, Denies headache(s), Denies numbness, Denies tingling and Denies weakness Psych Denies anxiety and Denies depression Endo Denies fatigue Aller/Immun Denies wheezing Physical exam (Primary Care) Vital Signs: Last Vital Signs Temp 97.1 F 10/03/25 09:37 Pulse 84 10/03/25 09:37 Resp 16 10/03/25 09:37 BP 112/64 10/03/25 09:37 Pulse Ox 98 10/03/25 09:37 Oxygen Delivery Method Room Air 10/03/25 09:37 BMI result Body Mass Index 23.5 Tobacco/Smoking Status: Tobacco use Status Tobacco use date assessed 10/03/25 10/03/25 09:32 Patient Tobacco Use Status Never used Tobacco 10/03/25 09:32 e-Cigarette/Vaping Use Never Used 10/03/25 09:32 Thrive Assessment: Date of Thrive Assessment Date Thrive assessed 03/07/25 10/03/25 09:32 Currently or been in a relationship where the following occur: No concerns reported Const General: well developed; No acute distress Nutritional Appearance: well nourished Orientation/consciousness: patient oriented x3 [facility] Head: Yes normocephalic and Yes atraumatic Eyes General: appearance normal, both eyes and all related structures Pupils: Equal, round and reactive pupils present EOM: EOMs intact bilaterally Resp Effort & Inspection: normal respiratory effort Neuro General: patient oriented x3 and gait normal Cranial nerves: Yes Equal, round and reactive pupils present Psych Affect: normal affect Results AMB Hemoglobin A1c AMB Hemoglobin A1c 5.4 % Last Edit by Sara Seals CMA on 10/03/25 09:46 Results Reviewed Results Reviewed: Laboratory Last Values Hgb A1c (Clinic) 5.4 % (4.0-6.0) 10/03/25 09:45 Coding Level of Care Code Est Pt Level 4 (51517) Diagnoses Essential hypertension I10 Diabetes type 2, controlled E11.9 Mild renal insufficiency N28.9 Assessment & Plan Assessment & Plan (1) Essential hypertension: Code(s): I10 - Essential (primary) hypertension Category: Medical Plan: Blood pressure well controlled. Goal is less than 140/90 Continue current medication (2) Diabetes type 2, controlled: Code(s): E11.9 - Type 2 diabetes mellitus without complications Category: Medical Plan: A1c now 5.4%. Very good control. Goal is less than 7.0%. She can decrease metformin from 500 mg daily to 250 mg daily. (3) Mild renal insufficiency: Code(s): N28.9 - Disorder of kidney and ureter, unspecified Category: Medical Plan: This has been improving. GFR now 58 Continue good hydration. Continue weight loss. Decreasing metformin as her A1c shows very good control. Continuing amlodipine and lisinopril for blood pressure control. Orders: Orders AMB Hemoglobin A1c Today E11.9 - Type 2 diabetes mellitus without complications Referrals Urology Referral N20.0 - Calculus of kidney Medications: Changed From metformin orally daily; 500 mg PO DAILY 90 days 120 tabs 0RF To metformin orally daily; 250 mg (1/2 x 500 mg) PO DAILY 45 tabs 0RF 90 days
[2025-10-03 09:37] VITALS: BP 112/64; PULSE 84; RESP 16; TEMP 36.2; O2SAT 98; BMI 23.5
== END 2025-10-03 10:04 | disposition home or self-care (01) ==
LOC: HO.HMCFM 09:26
PROVIDERS: PCP Family Medicine; Visit Provider Family Medicine
DX: I10 Essential (primary) hypertension (principal); E11.9 Type 2 diabetes mellitus without complications; N28.9 Disorder of kidney and ureter, unspecified

== ENCOUNTER → 2025-10-03 09:26 | Outpatient (BNVA) | payer MEDICARE, SELFPAY | PROVIDERS: PCP Family Medicine; Visit Provider Family Medicine | DX: N28.9 Disorder of kidney and ureter, unspecified (principal); E11.9 Type 2 diabetes mellitus without complications; I10 Essential (primary) hypertension; Z79.84 Long term (current) use of oral hypoglycemic drugs; Z87.442 Personal history of urinary calculi | CPT/HCPCS: 83036; 99212 ==